=== PATIENT | male | born 1950 | race Caucasian/White ===

== ENCOUNTER 2017-02-22 06:38 | Day surgery (SDC) | payer MEDICARE, BC ==
--- NOTE | 2016-12-11 09:09 | HP ---
DATE: 12/14/16 ADMISSION DIAGNOSIS: 1. STRICTURE. ANTICIPATED PROCEDURE: 1. EGD, possible dilatation. HISTORY OF PRESENT ILLNESS: Patient had progressive dysphagia over 3 months. Risks of the procedure, a diagram of the procedure, anticipated either balloon or Ricardo dilatation. PAST MEDICAL HISTORY: ALLERGIES: NONE. CURRENT MEDICATIONS: Gabapentin, baclofen, Flomax. SURGERIES: Laminectomy. SOCIAL HISTORY: Negative. FAMILY HISTORY: Negative. REVIEW OF SYSTEMS: Positive. PHYSICAL EXAMINATION: Vital signs normal. CHEST: Clear. COR: Regular. ABDOMEN: No palpable organomegaly or mass. IMPRESSION: 1. DYSPHAGIA. PLAN: EGD, probable dilatation.
[2017-02-22] MEDS ORDERED: Lactated Ringers 1,000 ML IV SCH (08:00)
[2017-02-22] MEDS ORDERED: Versed 2 MG/2 ML Injection IV ONE (08:00)
[2017-02-22] MEDS ORDERED: DIPRIVAN 200 MG/20 ML IV ONE (08:00)
[2017-02-22 10:20] VITALS: O2SAT 98
[2017-02-22 10:44] VITALS: BP 129/73; PULSE 56
--- NOTE | 2017-02-23 08:20 | OP ---
SURGERY DATE: 02/22/17 SURGERY TIME: 844 PREOPERATIVE DIAGNOSIS: 1. SYMPTOMS OF DYSPHAGIA. POSTOPERATIVE DIAGNOSIS: 1. ESOPHAGEAL STRICTURE SIZE 40. PROCEDURE: 1. EGD with Ricardo dilatation of stricture up to size 48. SURGEON: Sergio Ko M.D. [employer] NURSE: Moi Curtis MS-III. ANESTHESIA: MAC. COMPLICATIONS: None. CONDITION: Stable. INDICATION: Patient has dysphagia. Was seen and examined in the office. Procedure discussed with him including dilatation. OPERATIVE PROCEDURE: He was brought to endoscopy. Left lateral decubitus position. After suitable sedation, scope introduced. The stricture was about the size of the scope when it first entered. The scope did go through. Fundus, body, and antrum otherwise satisfactory. Pylorus satisfactory. Duodenal bulb and 2nd portion satisfactory. Scope withdrawn, looped upon itself. The fundus could not be distended very well from below. Retroflex view was not very good. The scope was withdrawn back. There was nothing seen in the antrum, body, or fundus. At the esophagogastric junction, there was just stricture. It was straight on. The Ricardo's were chosen. A size 40 was placed. The scope was reintroduced. A size 42 was placed. The scope was reintroduced. Size 44, scope reintroduced. 46, scope reintroduced. 48, scope reintroduced. We had progressed this up to a 48. There was no suggestion of any issue at the stricture site. It dilated evenly. There were no cracks, tears, submucosal tunnels, etc. He is placed on Protonix. Instructions were given to his of elevation of the bed. No late eating and he is scheduled to return to the office. He does have a stricture which places him as a class III esophagitis. He would be a candidate for an antireflux procedure if he so desired. A stricture automatically qualifies you for a Kortney.
--- NOTE | 2017-02-23 09:00 | HP ---
DATE: 02/22/17 ADMISSION DIAGNOSIS: 1. DYSPHAGIA. ANTICIPATED PROCEDURE: 1. EGD/dilatation. HISTORY OF PRESENT ILLNESS: The patient has a dysphagia. It has been progressive. PAST MEDICAL HISTORY: ALLERGIES: NONE. CURRENT MEDICATIONS: Daypro, gabapentin, baclofen, Flomax. SURGERIES: Laminectomy. SOCIAL HISTORY: Negative. FAMILY HISTORY: Negative. REVIEW OF SYSTEMS: Borderline diabetes. PHYSICAL EXAMINATION: Vital signs normal. CHEST: Clear. COR: Regular. ABDOMEN: No palpable organomegaly or mass. IMPRESSION: 1. DYSPHAGIA. PLAN: EGD/dilatation.
== END 2017-02-22 10:50 | disposition home or self-care (01) ==
LOC: SDC 06:38
PROVIDERS: ATTEND Surgery
PROC: 0D798ZZ Dilation of Duodenum, Via Natural or Artificial Opening Endoscopic (ICD-10-PCS; principal; 2017-02-22)
PROC: 0D768ZZ Dilation of Stomach, Via Natural or Artificial Opening Endoscopic (ICD-10-PCS; 2017-02-22)
DX: K22.2 Esophageal obstruction (principal); R13.10 Dysphagia, unspecified; Z79.899 Other long term (current) drug therapy
CPT/HCPCS: 00740; J2250; J2704

== ENCOUNTER 2020-08-23 10:56 | Observation (INO) | payer MEDICARE, BC ==
[2020-08-23] MEDS ORDERED: Zofran 4 MG/2 ML VIAL IV ONE ×2 (11:25→12:53)
[2020-08-23] MEDS ORDERED: Sodium Chloride 0.9% 1000 ML 1,000 ML IV SCH (11:30)
[2020-08-23] MEDS ORDERED: Zofran 4 MG/2 ML VIAL ONE ×2 (11:35→12:54)
[2020-08-23] MEDS ORDERED: Sodium Chloride 0.9% 1000 ML 1,000 ML ONE (11:36)
--- NOTE | 2020-08-23 11:51 | ERPHSYRPT ---
- History of Present Illness Time Seen by Provider: 08/23/20 11:30 Source: patient Exam Limitations: no limitations Patient Subjective Stated Complaint: vomiting Triage Nursing Assessment: Patient brought back to ED via w/c and transferred to bed with assist of 2. Patient A+O X3. Patient's skin pale, cool and dry. Patient reports he has been vomiting since the day before thanksgiving. Patient states this past week he is very weak and hasn't been able to eat or drink in the past 3 days. Patient reports the week of thanksgiving he had diarrhea, loss of taste/smell and fatigue. Patient cont to complains of fatigue. Patient denies pain or discomfort, but states "His belly feels sour". Patient's abdomen soft and round with hypoactive BS X 4. Physician History: Patient is a 70-year-old male presents to our ED for evaluation of nausea vomiting anorexia generalized weakness. Symptoms have been ongoing for approxi mately 3 weeks. Patient states he has lost approximately 20 pounds in this time frame. Patient is also experiencing generalized abdominal soreness. Family observed the patient is pale. He admits to loss of taste and smell. However he denies Covid exposure. Symptoms are constant. Symptoms are mild to moderate in intensity. No specific worsening or improving factors. Patient voices no other complaints or concerns at this time. Timing/Duration: week(s) (3 weeks) Severity: moderate Modifying Factors: Improves With: nothing Associated Symptoms: nausea, vomiting Allergies/Adverse Reactions: No Known Drug Allergies Allergy (Verified 08/23/20 11:18) Home Medications: Gabapentin [Neurontin] 600 mg PO TID 08/27/14 [History] Baclofen 2 tab PO BID 12/31/15 [History] Bupivacaine HCl/0.9 % NaCl/Pf [Bupivacaine 0.125%-Ns Autofusr] 600 mcg EPIDURAL DAILY 12/13/17 [History] Paroxetine HCl 20 mg [Paxil 20 MG] 20 mg PO DAILY 12/13/17 [History] Polyethylene Glycol 3350 [Miralax] 17 gm PO DAILY 12/13/17 [History] Diclofenac Sodium 50 mg [Voltaren 50 mg] 100 mg PO BID 08/23/20 [History] Hx Influenza Vaccination/Date Given: No (fall 2013) Hx Pneumococcal Vaccination/Date Given: No Immunizations Up to Date: Yes Travel Risk - International Travel Have you traveled outside of the country in past 3 weeks: No - Coronavirus Screening Are you exhibiting any of the following symptoms?: Yes - Review of Systems Constitutional: No Symptoms, No Fever, No Chills Eyes: No Symptoms Ears, Nose, & Throat: No Symptoms Respiratory: No Symptoms, No Cough, No Dyspnea Cardiac: No Symptoms, No Chest Pain, No Edema, No Syncope Abdominal/Gastrointestinal: No Symptoms, No Abdominal Pain, No Nausea, No Vomiting, No Diarrhea Genitourinary Symptoms: No Symptoms, No Dysuria Musculoskeletal: No Symptoms, No Back Pain, No Neck Pain Skin: No Symptoms, No Rash Neurological: No Symptoms, No Dizziness, No Focal Weakness, No Sensory Changes Psychological: No Symptoms Endocrine: No Symptoms Hematologic/Lymphatic: No Symptoms Immunological/Allergic: No Symptoms All Other Systems: Reviewed and Negative - Past Medical History Pertinent Past Medical History: Yes Neurological History: Other ENT History: No Pertinent History Cardiac History: No Pertinent History Respiratory History: No Pertinent History Endocrine Medical History: No Pertinent History Musculoskeletal History: Rheumatoid Arthritis GI Medical History: Other History: No Pertinent History Psycho-Social History: Depression Male Reproductive Disorders: Prostate Problems Other Medical History: SEE ABOVE; PT. 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 Colonoscopy , left knee replacement, EGD with dilatation 2015 - Social History Smoking Status: Never smoker Exposure to second hand smoke: No Drug Use: none Patient Lives Alone: No - Nursing Vital Signs Nursing Vital Signs: Initial Vital Signs Temperature 98.5 F 08/23/20 11:23 Pulse Rate 85 08/23/20 11:23 Respiratory Rate 21 08/23/20 11:23 Blood Pressure 142/91 08/23/20 11:23 O2 Sat by Pulse Oximetry 99 08/23/20 11:23 Pain Scale Pain Intensity 0 - Physical Exam General Appearance: no apparent distress, alert, other (Patient appears pale and weak.) Eye Exam: PERRL/EOMI, eyes nml inspection Ears, Nose, Throat Exam: normal ENT inspection, TMs normal, pharynx normal, moist mucous membranes Neck Exam: normal inspection, non-tender, supple, full range of motion Respiratory Exam: normal breath sounds, lungs clear, No respiratory distress Cardiovascular Exam: regular rate/rhythm, normal heart sounds, normal peripheral pulses Gastrointestinal/Abdomen Exam: soft, normal bowel sounds, No tenderness, No mass Back Exam: normal inspection, normal range of motion, No CVA tenderness, No vertebral tenderness Extremity Exam: normal inspection, normal range of motion, pelvis stable Neurologic Exam: alert, oriented x 3, cooperative, normal mood/affect, sensation nml, No motor deficits Skin Exam: normal color, warm, dry, No rash Lymphatic Exam: No adenopathy SpO2 Interpretation: normal SpO2: 98 O2 Delivery: Room Air - Course Nursing assessment & vital signs reviewed: Yes EKG Interpreted by Me: RATE (90), A-fib, NORMAL AXIS, NORMAL INTERVALS Ordered Tests: Active Orders 24 hr Category Date Time Status Loss Claim Clerk STAT Care 08/23/20 11:25 Active EKG-ER Only STAT Care 08/23/20 11:24 Active Mccabe [Catheter-[place] Mccabe] STAT Care 08/23/20 12:53 Active IV Insertion STAT Care 08/23/20 11:24 Active Pulse Oximetry (ED) STAT Care 08/23/20 11:24 Active ABDOMEN AND PELVIS W CONTRAST [CT] Stat Exams 08/23/20 11:46 Completed CBC W DIFF Stat Lab 08/23/20 12:20 Completed CMP Stat Lab 08/23/20 12:20 Completed LIPASE Stat Lab 08/23/20 12:20 Completed MAGNESIUM Stat Lab 08/23/20 12:20 Completed TROPONIN Q3H Lab 08/23/20 12:20 Completed TROPONIN Q3H Lab 08/23/20 14:30 Completed TROPONIN Q3H Lab 08/23/20 17:30 Ordered TROPONIN Q3H Lab 08/23/20 20:30 Ordered TROPONIN Q3H Lab 08/23/20 23:30 Ordered Transfer Order Routine Transfer 08/23/20 Ordered Medication Summary Generic Name Dose Route Start Last Admin Trade Name Freq PRN Reason Stop Dose Admin Sodium Chloride 1,000 mls @ 100 mls/hr 08/23/20 11:30 08/23/20 11:38 Sodium Chloride 0.9% 1000 Ml IV 09/22/20 11:29 100 mls/hr .Q10H LELO Administration Discontinued Medications Generic Name Dose Route Start Last Admin Trade Name Freq PRN Reason Stop Dose Admin Enoxaparin Sodium 80 mg 08/23/20 16:26 Enoxaparin Sodium SQ 08/23/20 16:27 STAT ONE Ondansetron HCl 4 mg 08/23/20 11:25 08/23/20 11:38 Zofran 4 Mg/2 Ml Vial IV 08/23/20 11:26 4 mg STAT ONE Administration Ondansetron HCl Confirm 08/23/20 11:35 Zofran 4 Mg/2 Ml Vial Administered 08/23/20 11:36 Dose 4 mg .ROUTE .STK-MED ONE Ondansetron HCl 4 mg 08/23/20 12:53 08/23/20 12:57 Zofran 4 Mg/2 Ml Vial IV 08/23/20 12:54 4 mg STAT ONE Administration Ondansetron HCl Confirm 08/23/20 12:54 Zofran 4 Mg/2 Ml Vial Administered 08/23/20 12:55 Dose 4 mg .ROUTE .STK-MED ONE Pantoprazole Sodium 40 mg 08/23/20 16:22 Protonix 40 Mg Iv IV 08/23/20 16:23 STAT ONE Lab/Rad Data: Laboratory Result Diagrams 08/23/20 12:20 08/23/20 12:20 Laboratory Results 08/23/20 08/23/20 08/23/20 Range/Units 14:30 13:09 12:43 WBC (4.0-10.5) K/mm3 RBC (4.1-5.6) M/mm3 Hgb (12.5-18.0) gm/dl Hct (42-50) % MCV (78-100) fl MCH (26-32) pg MCHC (32-36) g/dl RDW (11.5-14.0) % Plt Count (150-450) K/mm3 MPV (7.5-11.0) fl Gran % (36.0-66.0) % Eos # (Auto) (0-0.5) Absolute Lymphs (auto) (1.0-4.6) Absolute Monos (auto) (0.0-1.3) Lymphocytes % (24.0-44.0) % Monocytes % (0.0-12.0) % Eosinophils % (0.00-5.0) % Basophils % (0.0-0.4) % Absolute Granulocytes (1.4-6.9) Basophils # (0-0.4) Sodium (137-145) mmol/L Potassium (3.5-5.1) mmol/L Chloride (98-107) mmol/L Carbon Dioxide (22-30) mmol/L Anion Gap (5-15) MEQ/L BUN (9-20) mg/dL Creatinine (0.66-1.25) mg/dL Estimated GFR ML/MIN Glucose (74-106) mg/dL Calcium (8.4-10.2) mg/dL Magnesium (1.6-2.3) mg/dL Total Bilirubin (0.2-1.3) mg/dL AST (17-59) U/L ALT (0-50) U/L Alkaline Phosphatase (38-126) U/L Troponin I < 0.012 (0.000-0.034) ng/mL Serum Total Protein (6.3-8.2) g/dL Albumin (3.5-5.0) g/dL Lipase (23-300) U/L Urinalys Dipstick Clnc MAIN LAB Urine Color YELLOW (YELLOW) Urine Appearance CLEAR (CLEAR) Urine pH 6.0 (5-6) Ur Specific [place] 1.025 (1.005-1.025) POC Urine Protein Conf TRACE (Negative) Urine Ketones MODERATE-40 (NEGATIVE) Urine Nitrite NEGATIVE (NEGATIVE) Urine Bilirubin SMALL (NEGATIVE) Urine Urobilinogen 0.2 (0-1) mg/dL Urine Leukocytes NEGATIVE (NEGATIVE) Urine WBC (Auto) 0-2 (0-5) /HPF Urine RBC (Auto) 3-5 (0-2) /HPF Urine RBC TRACE-INTACT (0-5) Gurjit/ul Urine Mucus (Auto) SLIGHT (NEGATIVE) /HPF Ur Culture Indicated? NO Urine Glucose NEGATIVE (NEGATIVE) mg/dL SARS-CoV-2 (PCR) NEGATIVE (NEGATIVE) 08/23/20 08/23/20 08/23/20 Range/Units 12:20 12:20 12:20 WBC 9.5 (4.0-10.5) K/mm3 RBC 3.70 L (4.1-5.6) M/mm3 Hgb 11.6 L (12.5-18.0) gm/dl Hct 36.5 L (42-50) % MCV 98.6 (78-100) fl MCH 31.4 (26-32) pg MCHC 31.8 L (32-36) g/dl RDW 13.2 (11.5-14.0) % Plt Count 195 (150-450) K/mm3 MPV 10.7 (7.5-11.0) fl Gran % 85.5 H (36.0-66.0) % Eos # (Auto) 0.06 (0-0.5) Absolute Lymphs (auto) 0.81 L (1.0-4.6) Absolute Monos (auto) 0.49 (0.0-1.3) Lymphocytes % 8.6 L (24.0-44.0) % Monocytes % 5.2 (0.0-12.0) % Eosinophils % 0.6 (0.00-5.0) % Basophils % 0.1 (0.0-0.4) % Absolute Granulocytes 8.08 H (1.4-6.9) Basophils # 0.01 (0-0.4) Sodium 135 L (137-145) mmol/L Potassium 4.1 (3.5-5.1) mmol/L Chloride 99 (98-107) mmol/L Carbon Dioxide 25 (22-30) mmol/L Anion Gap 14.5 (5-15) MEQ/L BUN 27 H (9-20) mg/dL Creatinine 0.93 (0.66-1.25) mg/dL Estimated GFR > 60.0 ML/MIN Glucose 127 H (74-106) mg/dL Calcium 9.3 (8.4-10.2) mg/dL Magnesium 2.0 (1.6-2.3) mg/dL Total Bilirubin 0.80 (0.2-1.3) mg/dL AST 44 (17-59) U/L ALT 34 (0-50) U/L Alkaline Phosphatase 191 H (38-126) U/L Troponin I < 0.012 (0.000-0.034) ng/mL Serum Total Protein 7.9 (6.3-8.2) g/dL Albumin 4.3 (3.5-5.0) g/dL Lipase 32 (23-300) U/L Urinalys Dipstick Clnc Urine Color (YELLOW) Urine Appearance (CLEAR) Urine pH (5-6) Ur Specific [place] (1.005-1.025) POC Urine Protein Conf (Negative) Urine Ketones (NEGATIVE) Urine Nitrite (NEGATIVE) Urine Bilirubin (NEGATIVE) Urine Urobilinogen (0-1) mg/dL Urine Leukocytes (NEGATIVE) Urine WBC (Auto) (0-5) /HPF Urine RBC (Auto) (0-2) /HPF Urine RBC (0-5) Gurjit/ul Urine Mucus (Auto) (NEGATIVE) /HPF Ur Culture Indicated? Urine Glucose (NEGATIVE) mg/dL SARS-CoV-2 (PCR) (NEGATIVE) - Progress Progress: improved Progress Note: 08/23/20 16:[address] Shaikh. Patient is new onset atrial fibrillation. Anticoagulation ordered. Patient received a dose of Lovenox. Protonix administered. Zofran administered. Patient feels better. Due to patient's atrial fibrillation Dr. Shaikh requested cardiology consult. Cardiology not immediately available. Dr. Shaikh not comfortable with admission. Staff contacted Dr. Vargas who accepted admission. Patient received a dose of Lovenox in our ED. Discussed with : Tawanda Will see patient in: hospital (observation) Counseled pt/family regarding: lab results, diagnosis, need for follow-up, rad results - Departure Departure Disposition: Observation Clinical Impression: Lung granuloma, Renal cyst, Atherosclerosis, Diverticulosis, Inguinal hernia, right, Degenerative disc disease, Generalized weakness, Weight loss, Nausea and vomiting, Atrial fibrillation Condition: Stable Critical Care Time: No Referrals: DOMI CORNEJO [Primary Care Provider] -
[2020-08-23 12:40] LABS: Absolute Neutrophil Ct (ANC) 8.08 (1.4-6.9); BASOPHIL % 0.1 % (0.0-0.4); Basophil (Absolute #) 0.01 (0-0.4); Eosinophil % 0.6 % (0.00-5.0); Eosinophil (Absolute #) 0.06 (0-0.5); Hematocrit 36.5 % (42-50); Hemoglobin 11.6 gm/dl (12.5-18.0); Lymphocyte (Absolute #) 0.81 (1.0-4.6); Lymphocytes % 8.6 % (24.0-44.0); Mean Cell Volume 98.6 fl (78-100); Mean Corpuscular Hemoglobin 31.4 pg (26-32); Mean Corpuscular Hgb Concent. 31.8 g/dl (32-36); Mean Platelet Volume 10.7 fl (7.5-11.0); Monocyte (Absolute #) 0.49 (0.0-1.3); Monocytes % 5.2 % (0.0-12.0); Neutrophil % 85.5 % (36.0-66.0); Platelet Count 195 K/mm3 (150-450); Red Cell Distribution Width 13.2 % (11.5-14.0); White Blood Count 9.5 K/mm3 (4.0-10.5)
[2020-08-23 12:43] LABS: ALBUMIN 4.3 g/dL (3.5-5.0); ALKALINE PHOSPHATASE 191 U/L (38-126); ANION GAP 14.5 MEQ/L (5-15); BLOOD UREA NITROGEN 27 mg/dL (9-20); CHLORIDE 99 mmol/L (98-107); Calcium 9.3 mg/dL (8.4-10.2); Carbon Dioxide 25 mmol/L (22-30); Creatinine 1 0.93 mg/dL (0.66-1.25); EST GLOMERULAR FILTRATION RATE > 60.0 ML/MIN; Glucose 127 mg/dL (74-106); LIPASE 32 U/L (23-300); Potassium 4.1 mmol/L (3.5-5.1); SGOT/AST 44 U/L (17-59); SGPT/ALT 34 U/L (0-50); SODIUM 135 mmol/L (137-145); Total Protein 7.9 g/dL (6.3-8.2)
[2020-08-23 13:31] LABS: Appearance CLEAR (CLEAR); Bilirubin SMALL (NEGATIVE); Dipstick done @ ? MAIN LAB; Glucose NEGATIVE (NEGATIVE); Ketones MODERATE-40 (NEGATIVE); Nitrite NEGATIVE (NEGATIVE); Protein,Urine Dip TRACE (Negative); RBC TRACE-INTACT Ery/ul (0-5); Specific Gravity 1.025 (1.005-1.025); Urobilinogen 0.2 mg/dL (0-1)
[2020-08-23 13:33] LABS: Mucus SLIGHT /HPF (NEGATIVE); WBC 0-2 /HPF (0-5)
--- NOTE | 2020-08-23 14:27 | XRAY ---
Exam: CT of the abdomen and pelvis with IV contrast from 08/23/2020. Total DLP: 2099.10 mGy-cm Comparison: None. Indication: 70-year-old male with persistent nausea, fatigue, and weight loss. The patient is status post appendectomy. He had a pain pump placed on his left side in 2015. Technique: Post-IV contrast axial images were obtained through the abdomen and pelvis during automated injection of 80 cc of Isovue-370 contrast material. No oral contrast was given. Reconstructed coronal and sagittal images were created and reviewed. Findings: The patient was unable to position his arms over his head for this exam. This results in mild increased CT artifact. The visualized lung bases reveal a small calcified granuloma at the medial right lung base. There is also a small calcified granuloma at the posterior medial left lung base. The remainder of the visualized lung bases appears clear. The liver appears of unremarkable size and reveals no mass or biliary duct distention. The gallbladder is minimally distended, but grossly unremarkable. The spleen is of normal size and reveals multiple calcified granulomas within it. The pancreas and adrenal glands appear normal. The kidneys reveal a 1.8 cm x 1.5 cm cyst at the posterior medial aspect of the middle third of the left kidney. No definite solid renal mass, renal calculi, or hydronephrosis is seen. A mildly tortuous abdominal aorta is seen which contains moderate atherosclerotic vascular calcification. No abdominal aortic aneurysm is seen. No abnormal retroperitoneal lymphadenopathy is seen. I do see a nonspecific 1.1 cm left periaortic lymph node on axial image #35 of series 2. This is nonspecific. No abnormal mesenteric lymphadenopathy is seen. A metallic generator for a pain pump is seen within the anterior lateral left midabdomen in a subcutaneous position. I do not see any leads emanating from this pain pump. Correlate clinically. No ventral abdominal wall hernia or free intraperitoneal air is seen. The stomach appears mildly distended and reveals moderate fluid within it resulting in a long air-fluid level, best seen on axial image #33. The remainder of the small bowel and colon appear nonobstructed. Scattered colonic stool is evident. Uncomplicated diverticula are seen within the distal descending colon and sigmoid colon consistent with diverticulosis without evidence of diverticulitis. The appendix is surgically absent. No enlarged pelvic lymph nodes or free intraperitoneal fluid is seen. A urinary Mccabe catheter is seen in place with the urinary bladder completely collapsed. Minimal prostate gland calcification is noted within a normal-sized prostate gland. A prominent fat-containing right inguinal hernia is seen. No bowel containing inguinal hernia is seen. Some vascular calcification is seen within the right common femoral artery. A few shoddy postinflammatory lymph nodes are seen within each groin. The skeleton reveals no acute fracture or bone destruction. Moderate multilevel degenerative disc disease is seen within the visualized lower thoracic spine, most pronounced at T9-T10. I also note mild degenerative disc disease at L1-L2 and L2-L3 and moderate to marked degenerative disc disease at L3-L4, L4-L5, and L5-S1. Impression: 1. Nonspecific bowel gas pattern with mildly distended stomach lumen containing moderate intraluminal fluid. I see no findings to suggest bowel obstruction. No free air or free fluid is seen. 2. Small cyst at the medial margin of the left kidney, mild atherosclerotic vascular disease, diverticulosis without evidence of diverticulitis within the distal descending and sigmoid colon, and a prominent right inguinal fat-containing hernia are seen. 3. No other acute process is seen within the abdomen or pelvis. 4. A metallic generator for a pain pump is seen overlying the subcutaneous anterior left lateral midabdomen. No electrodes are seen emanating from it. I also note a urinary Mccabe catheter in place. 5. Significant multilevel degenerative disc disease is seen throughout the visualized thoracolumbar spine, as discussed above.
[2020-08-23] MEDS ORDERED: PROTONIX 40 MG IV IV ONE ×2 (16:22→16:28)
[2020-08-23] MEDS ORDERED: ENOXAPARIN SODIUM SQ ONE ×2 (16:26→16:28)
[2020-08-23] MEDS ORDERED: MORPHINE SULFATE 2 MG INJ IV PRN (16:52)
[2020-08-23] MEDS ORDERED: Zofran 4 MG/2 ML VIAL IV PRN (17:39)
[2020-08-23] MEDS: Sodium Chloride 0.9% 1000 ML 1,000 ML IV SCH ×2 (18:13→20:53)
[2020-08-23] MEDS: NEURONTIN 300 MG PO SCH (22:18)
[2020-08-23] MEDS: Miralax Powder 17GM PACKET PO SCH (22:19)
[2020-08-23] MEDS: LIORESAL 10 MG PO SCH (22:19)
[2020-08-23] MEDS: Voltaren GEL TOP SCH (22:26)
[2020-08-24] MEDS ORDERED: ENOXAPARIN SODIUM SQ SCH (04:00)
[2020-08-24 06:06] LABS: Absolute Neutrophil Ct (ANC) 3.34 (1.4-6.9); BASOPHIL % 0.2 % (0.0-0.4); Basophil (Absolute #) 0.01 (0-0.4); Eosinophil % 5.9 % (0.00-5.0); Eosinophil (Absolute #) 0.35 (0-0.5); Hematocrit 28.7 % (42-50); Hemoglobin 9.1 gm/dl (12.5-18.0); Lymphocyte (Absolute #) 1.75 (1.0-4.6); Lymphocytes % 29.4 % (24.0-44.0); Mean Cell Volume 98.6 fl (78-100); Mean Corpuscular Hemoglobin 31.3 pg (26-32); Mean Corpuscular Hgb Concent. 31.7 g/dl (32-36); Monocytes % 8.4 % (0.0-12.0); Neutrophil % 56.1 % (36.0-66.0); Platelet Count 162 K/mm3 (150-450); Red Blood Count 2.91 M/mm3 (4.1-5.6); Red Cell Distribution Width 13.3 % (11.5-14.0)
[2020-08-24 06:13] LABS: ALBUMIN 3.1 g/dL (3.5-5.0); ALKALINE PHOSPHATASE 143 U/L (38-126); ANION GAP 8.2 MEQ/L (5-15); BLOOD UREA NITROGEN 26 mg/dL (9-20); CHLORIDE 103 mmol/L (98-107); Carbon Dioxide 23 mmol/L (22-30); Creatinine 1 1.05 mg/dL (0.66-1.25); EST GLOMERULAR FILTRATION RATE > 60.0 ML/MIN; Glucose 89 mg/dL (74-106); Potassium 3.9 mmol/L (3.5-5.1); SGOT/AST 34 U/L (17-59); SGPT/ALT 29 U/L (0-50); SODIUM 130 mmol/L (137-145)
[2020-08-24] MEDS: Sodium Chloride 0.9% 1000 ML 1,000 ML IV SCH ×2 (06:27→17:18)
--- NOTE | 2020-08-24 08:42 | PCM.HP ---
History of Present Illness - Chief Complaint Chief Complaint: Nausea and vomiting History of Present Illness: is a 70 year old male patient of Dr Correa, he was admitted yesterday, came to the ER stating that he has felt poorly for the last 2 weeks, he has been very nauseated with intermittent vomiting and poor appetite. he has had some intermittent diarrhea as well, denies pain in his abdomen, no prior history of GI bleed, has had a colonoscopy but it was several years back per the patient. 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 he is actually feeling much better this morning, nausea has responded very well to zofran, he denies chest pain, no shortness of breath or palpitations. He had a negative rapid covid in ER on 08/23. 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 - Review of Systems Constitutional: No Fever, No Chills Abdominal/Gastrointestinal: Nausea, Vomiting, Diarrhea, No Abdominal Pain Skin: No Rash All Other Systems: Reviewed and Negative Medications & Allergies Home Medications: Home Medication List Gabapentin [Neurontin] 600 mg PO TID 08/27/14 [History Confirmed 08/23/20] Baclofen 20 mg PO TID 12/31/15 [History Confirmed 08/23/20] Bupivacaine HCl/0.9 % NaCl/Pf [Bupivacaine 0.125%-Ns Autofusr] 600 mcg EPIDURAL DAILY 12/13/17 [History Confirmed 08/23/20] Paroxetine HCl 20 mg [Paxil 20 MG] 20 mg PO DAILY 12/13/17 [History Confirmed 08/23/20] Polyethylene Glycol 3350 [Miralax] 17 gm PO DAILY 12/13/17 [History Confirmed 08/23/20] Diclofenac Sodium 50 mg [Voltaren 50 mg] 100 mg PO BID 08/23/20 [History Confirmed 08/23/20] Allergies/Adverse Reactions: Allergies Allergy/AdvReac Type Severity Reaction Status Date / Time No Known Drug Allergies Allergy Verified 08/23/20 11:18 - Past Medical History Past Medical History: Yes Neurological History: Other ENT History: No Pertinent History Cardiac History: No Pertinent History Respiratory History: No Pertinent History Endocrine Medical History: No Pertinent History Musculoskelatal History: Rheumatoid Arthritis GI Medical History: Other History: No Pertinent History Pyscho-Social History: Depression Male Reproductive Disorders: Prostate Problems Comment: SEE ABOVE; pt has arthritis in right knee and bilateral shoulders, pt has difficulty swallowing.constipation related to nerve damage, spinal stenosis - Past Surgical History Past Surgical History: Yes Neuro Surgical History: No Pertinent History Cardiac History: No Pertinent History Respiratory Surgery: No Pertinent History GI Surgical History: Appendectomy Genitourinary Surgical Hx: No Pertinent History Musculskeletal Surgical Hx: Other Male Surgical History: No Pertinent History Other Surgical History: tonsils,states back t-10,11,12 r/t thoracic stenosis(states bone removed). Colonoscopy , left knee replacement, EGD with dilatation 2015 - Social History Smoking Status: Never smoker Exposure to second hand smoke: No Alcohol: None Drug Use: none - Physical Exam Vital Signs: Vital Signs - 24 hr Temp Pulse Resp BP Pulse Ox 08/24/20 07:37 97.9 F 73 20 97/55 96 08/24/20 04:00 97.1 F 65 20 110/58 96 08/24/20 00:00 97.9 F 69 20 104/58 95 08/23/20 20:00 97.6 F 69 20 105/57 96 08/23/20 17:42 98 08/23/20 16:30 98 08/23/20 15:00 76 16 129/65 99 08/23/20 14:00 76 18 127/72 99 08/23/20 12:50 88 18 139/83 98 08/23/20 11:35 98 08/23/20 11:34 98 08/23/20 11:23 98.5 F 85 21 142/91 99 General Appearance: no apparent distress Neurologic Exam: alert, oriented x 3 Respiratory Exam: normal breath sounds, lungs clear, No respiratory distress Cardiovascular Exam: irregular Gastrointestinal/Abdomen Exam: soft, normal bowel sounds, No tenderness, No mass Extremity Exam: normal inspection, normal range of motion, pelvis stable Skin Exam: normal color, warm, dry, No rash Results - Labs Lab/Micro Results: Lab Results-Last 24 Hours 08/23/20 08/23/20 08/23/20 Range/Units 12:20 12:20 12:20 WBC 9.5 (4.0-10.5) K/mm3 RBC 3.70 L (4.1-5.6) M/mm3 Hgb 11.6 L (12.5-18.0) gm/dl Hct 36.5 L (42-50) % MCV 98.6 (78-100) fl MCH 31.4 (26-32) pg MCHC 31.8 L (32-36) g/dl RDW 13.2 (11.5-14.0) % Plt Count 195 (150-450) K/mm3 MPV 10.7 (7.5-11.0) fl Gran % 85.5 H (36.0-66.0) % Eos # (Auto) 0.06 (0-0.5) Absolute Lymphs (auto) 0.81 L (1.0-4.6) Absolute Monos (auto) 0.49 (0.0-1.3) Lymphocytes % 8.6 L (24.0-44.0) % Monocytes % 5.2 (0.0-12.0) % Eosinophils % 0.6 (0.00-5.0) % Basophils % 0.1 (0.0-0.4) % Absolute Granulocytes 8.08 H (1.4-6.9) Basophils # 0.01 (0-0.4) Sodium 135 L (137-145) mmol/L Potassium 4.1 (3.5-5.1) mmol/L Chloride 99 (98-107) mmol/L Carbon Dioxide 25 (22-30) mmol/L Anion Gap 14.5 (5-15) MEQ/L BUN 27 H (9-20) mg/dL Creatinine 0.93 (0.66-1.25) mg/dL Estimated GFR > 60.0 ML/MIN Glucose 127 H (74-106) mg/dL Calcium 9.3 (8.4-10.2) mg/dL Magnesium 2.0 (1.6-2.3) mg/dL Total Bilirubin 0.80 (0.2-1.3) mg/dL AST 44 (17-59) U/L ALT 34 (0-50) U/L Alkaline Phosphatase 191 H (38-126) U/L Troponin I < 0.012 (0.000-0.034) ng/mL Serum Total Protein 7.9 (6.3-8.2) g/dL Albumin 4.3 (3.5-5.0) g/dL Lipase 32 (23-300) U/L Urinalys Dipstick Clnc Urine Color (YELLOW) Urine Appearance (CLEAR) Urine pH (5-6) Ur Specific [place] (1.005-1.025) POC Urine Protein Conf (Negative) Urine Ketones (NEGATIVE) Urine Nitrite (NEGATIVE) Urine Bilirubin (NEGATIVE) Urine Urobilinogen (0-1) mg/dL Urine Leukocytes (NEGATIVE) Urine WBC (Auto) (0-5) /HPF Urine RBC (Auto) (0-2) /HPF Urine RBC (0-5) Gurjit/ul Urine Mucus (Auto) (NEGATIVE) /HPF Ur Culture Indicated? Urine Glucose (NEGATIVE) mg/dL SARS-CoV-2 (PCR) (NEGATIVE) 08/23/20 08/23/20 08/23/20 Range/Units 12:43 13:09 14:30 WBC (4.0-10.5) K/mm3 RBC (4.1-5.6) M/mm3 Hgb (12.5-18.0) gm/dl Hct (42-50) % MCV (78-100) fl MCH (26-32) pg MCHC (32-36) g/dl RDW (11.5-14.0) % Plt Count (150-450) K/mm3 MPV (7.5-11.0) fl Gran % (36.0-66.0) % Eos # (Auto) (0-0.5) Absolute Lymphs (auto) (1.0-4.6) Absolute Monos (auto) (0.0-1.3) Lymphocytes % (24.0-44.0) % Monocytes % (0.0-12.0) % Eosinophils % (0.00-5.0) % Basophils % (0.0-0.4) % Absolute Granulocytes (1.4-6.9) Basophils # (0-0.4) Sodium (137-145) mmol/L Potassium (3.5-5.1) mmol/L Chloride (98-107) mmol/L Carbon Dioxide (22-30) mmol/L Anion Gap (5-15) MEQ/L BUN (9-20) mg/dL Creatinine (0.66-1.25) mg/dL Estimated GFR ML/MIN Glucose (74-106) mg/dL Calcium (8.4-10.2) mg/dL Magnesium (1.6-2.3) mg/dL Total Bilirubin (0.2-1.3) mg/dL AST (17-59) U/L ALT (0-50) U/L Alkaline Phosphatase (38-126) U/L Troponin I < 0.012 (0.000-0.034) ng/mL Serum Total Protein (6.3-8.2) g/dL Albumin (3.5-5.0) g/dL Lipase (23-300) U/L Urinalys Dipstick Clnc MAIN LAB Urine Color YELLOW (YELLOW) Urine Appearance CLEAR (CLEAR) Urine pH 6.0 (5-6) Ur Specific [place] 1.025 (1.005-1.025) POC Urine Protein Conf TRACE (Negative) Urine Ketones MODERATE-40 (NEGATIVE) Urine Nitrite NEGATIVE (NEGATIVE) Urine Bilirubin SMALL (NEGATIVE) Urine Urobilinogen 0.2 (0-1) mg/dL Urine Leukocytes NEGATIVE (NEGATIVE) Urine WBC (Auto) 0-2 (0-5) /HPF Urine RBC (Auto) 3-5 (0-2) /HPF Urine RBC TRACE-INTACT (0-5) Gurjit/ul Urine Mucus (Auto) SLIGHT (NEGATIVE) /HPF Ur Culture Indicated? NO Urine Glucose NEGATIVE (NEGATIVE) mg/dL SARS-CoV-2 (PCR) NEGATIVE (NEGATIVE) 08/23/20 08/23/20 08/23/20 Range/Units 18:15 20:46 23:46 WBC (4.0-10.5) K/mm3 RBC (4.1-5.6) M/mm3 Hgb (12.5-18.0) gm/dl Hct (42-50) % MCV (78-100) fl MCH (26-32) pg MCHC (32-36) g/dl RDW (11.5-14.0) % Plt Count (150-450) K/mm3 MPV (7.5-11.0) fl Gran % (36.0-66.0) % Eos # (Auto) (0-0.5) Absolute Lymphs (auto) (1.0-4.6) Absolute Monos (auto) (0.0-1.3) Lymphocytes % (24.0-44.0) % Monocytes % (0.0-12.0) % Eosinophils % (0.00-5.0) % Basophils % (0.0-0.4) % Absolute Granulocytes (1.4-6.9) Basophils # (0-0.4) Sodium (137-145) mmol/L Potassium (3.5-5.1) mmol/L Chloride (98-107) mmol/L Carbon Dioxide (22-30) mmol/L Anion Gap (5-15) MEQ/L BUN (9-20) mg/dL Creatinine (0.66-1.25) mg/dL Estimated GFR ML/MIN Glucose (74-106) mg/dL Calcium (8.4-10.2) mg/dL Magnesium (1.6-2.3) mg/dL Total Bilirubin (0.2-1.3) mg/dL AST (17-59) U/L ALT (0-50) U/L Alkaline Phosphatase (38-126) U/L Troponin I < 0.012 < 0.012 < 0.012 (0.000-0.034) ng/mL Serum Total Protein (6.3-8.2) g/dL Albumin (3.5-5.0) g/dL Lipase (23-300) U/L Urinalys Dipstick Clnc Urine Color (YELLOW) Urine Appearance (CLEAR) Urine pH (5-6) Ur Specific [place] (1.005-1.025) POC Urine Protein Conf (Negative) Urine Ketones (NEGATIVE) Urine Nitrite (NEGATIVE) Urine Bilirubin (NEGATIVE) Urine Urobilinogen (0-1) mg/dL Urine Leukocytes (NEGATIVE) Urine WBC (Auto) (0-5) /HPF Urine RBC (Auto) (0-2) /HPF Urine RBC (0-5) Gurjit/ul Urine Mucus (Auto) (NEGATIVE) /HPF Ur Culture Indicated? Urine Glucose (NEGATIVE) mg/dL SARS-CoV-2 (PCR) (NEGATIVE) 08/24/20 08/24/20 Range/Units 04:40 04:40 WBC 6.0 (4.0-10.5) K/mm3 RBC 2.91 L (4.1-5.6) M/mm3 Hgb 9.1 L D (12.5-18.0) gm/dl Hct 28.7 L (42-50) % MCV 98.6 (78-100) fl MCH 31.3 (26-32) pg MCHC 31.7 L (32-36) g/dl RDW 13.3 (11.5-14.0) % Plt Count 162 (150-450) K/mm3 MPV 11.0 (7.5-11.0) fl Gran % 56.1 (36.0-66.0) % Eos # (Auto) 0.35 (0-0.5) Absolute Lymphs (auto) 1.75 (1.0-4.6) Absolute Monos (auto) 0.50 (0.0-1.3) Lymphocytes % 29.4 (24.0-44.0) % Monocytes % 8.4 (0.0-12.0) % Eosinophils % 5.9 H (0.00-5.0) % Basophils % 0.2 (0.0-0.4) % Absolute Granulocytes 3.34 (1.4-6.9) Basophils # 0.01 (0-0.4) Sodium 130 L (137-145) mmol/L Potassium 3.9 (3.5-5.1) mmol/L Chloride 103 (98-107) mmol/L Carbon Dioxide 23 (22-30) mmol/L Anion Gap 8.2 (5-15) MEQ/L BUN 26 H (9-20) mg/dL Creatinine 1.05 (0.66-1.25) mg/dL Estimated GFR > 60.0 ML/MIN Glucose 89 (74-106) mg/dL Calcium 8.0 L (8.4-10.2) mg/dL Magnesium (1.6-2.3) mg/dL Total Bilirubin 0.50 (0.2-1.3) mg/dL AST 34 (17-59) U/L ALT 29 (0-50) U/L Alkaline Phosphatase 143 H (38-126) U/L Troponin I (0.000-0.034) ng/mL Serum Total Protein 6.0 L (6.3-8.2) g/dL Albumin 3.1 L (3.5-5.0) g/dL Lipase (23-300) U/L Urinalys Dipstick Clnc Urine Color (YELLOW) Urine Appearance (CLEAR) Urine pH (5-6) Ur Specific [place] (1.005-1.025) POC Urine Protein Conf (Negative) Urine Ketones (NEGATIVE) Urine Nitrite (NEGATIVE) Urine Bilirubin (NEGATIVE) Urine Urobilinogen (0-1) mg/dL Urine Leukocytes (NEGATIVE) Urine WBC (Auto) (0-5) /HPF Urine RBC (Auto) (0-2) /HPF Urine RBC (0-5) Gurjit/ul Urine Mucus (Auto) (NEGATIVE) /HPF Ur Culture Indicated? Urine Glucose (NEGATIVE) mg/dL SARS-CoV-2 (PCR) (NEGATIVE) - Radiology Impressions Radiology Exams & Impressions: Radiology Procedures Category Date Time Status ABDOMEN AND PELVIS W CONTRAST [CT] Stat Exams 08/23/20 11:46 Completed ECHO W/2D AND DOPPLER [US] Routine Exams 08/24/20 Ordered Assessment/Plan (1) New onset atrial fibrillation Current Visit: Yes Status: Acute Assessment & Plan: ordered tsh, troponin negative. will hold on any more lovenox at this time secondary to anemia. cardiology consult and echo are pending. rate has been controlled so no intervention required currently. Code(s): I48.91 - UNSPECIFIED ATRIAL FIBRILLATION (2) Anemia Current Visit: Yes Status: Acute Assessment & Plan: concern for ulcer disease, with new onset of a fib will hold on any more anticoagulation, continue IV PPI, will obtain surgical consult. if h/h drops further might need to consider endoscopic evaluation, will appreciate their input and following. checking stool for occult blood, had mild anemia on arrival, worsened overnight. hydration might have some dilutional component but I do not feel it would account for the entire drop. Code(s): D64.9 - ANEMIA, UNSPECIFIED (3) Nausea and vomiting Current Visit: Yes Status: Acute Assessment & Plan: improved with zofran at this time. Code(s): R11.2 - NAUSEA WITH VOMITING, UNSPECIFIED
[2020-08-24] MEDS: Paxil 20 MG PO SCH (09:11)
[2020-08-24] MEDS: NEURONTIN 300 MG PO SCH ×3 (09:11→21:59)
[2020-08-24] MEDS: LIORESAL 10 MG PO SCH ×3 (09:11→21:59)
[2020-08-24] MEDS: Miralax Powder 17GM PACKET PO SCH (09:12)
[2020-08-24] MEDS: Voltaren GEL TOP SCH ×3 (09:13→21:59)
[2020-08-24] MEDS: PROTONIX 40 MG IV IV SCH ×2 (09:25→21:59)
[2020-08-24] MEDS ORDERED: PROTONIX 40 MG IV IV SCH (10:00)
[2020-08-24] MEDS: SODIUM CHLORIDE IJ SCH (10:03)
[2020-08-24] MEDS: [UNRECOGNIZED DRUG - OTHER] IJ SCH (10:03)
[2020-08-24] MEDS: BUPIVACAINE HCL IJ SCH (10:03)
[2020-08-24 16:03] LABS: Hematocrit 30.3 % (42-50); Hemoglobin 9.6 gm/dl (12.5-18.0)
[2020-08-25 04:39] LABS: Absolute Neutrophil Ct (ANC) 3.01 (1.4-6.9); BASOPHIL % 0.2 % (0.0-0.4); Basophil (Absolute #) 0.01 (0-0.4); Eosinophil % 6.9 % (0.00-5.0); Eosinophil (Absolute #) 0.32 (0-0.5); Hematocrit 27.7 % (42-50); Hemoglobin 8.8 gm/dl (12.5-18.0); Lymphocytes % 21.5 % (24.0-44.0); Mean Cell Volume 98.9 fl (78-100); Mean Corpuscular Hemoglobin 31.4 pg (26-32); Mean Corpuscular Hgb Concent. 31.8 g/dl (32-36); Mean Platelet Volume 10.4 fl (7.5-11.0); Monocyte (Absolute #) 0.32 (0.0-1.3); Monocytes % 6.9 % (0.0-12.0); Neutrophil % 64.5 % (36.0-66.0); Platelet Count 165 K/mm3 (150-450); Red Cell Distribution Width 13.2 % (11.5-14.0); White Blood Count 4.7 K/mm3 (4.0-10.5)
[2020-08-25 05:08] LABS: ANION GAP 9.4 MEQ/L (5-15); BLOOD UREA NITROGEN 16 mg/dL (9-20); CHLORIDE 102 mmol/L (98-107); Calcium 8.2 mg/dL (8.4-10.2); Carbon Dioxide 27 mmol/L (22-30); Creatinine 1 0.78 mg/dL (0.66-1.25); EST GLOMERULAR FILTRATION RATE > 60.0 ML/MIN; Glucose 92 mg/dL (74-106); Potassium 3.8 mmol/L (3.5-5.1); SODIUM 134 mmol/L (137-145); TROPONIN < 0.012 ng/mL (0.000-0.034)
--- NOTE | 2020-08-25 08:39 | PCM.NOTE ---
Date and Time: 08/25/20 0837 Subjective Assessment: patient has no chest pain, denies nausea/vomiting or diarrhea overnight. occult blood + from stool Objective Exam General Appearance: no apparent distress, alert Skin Exam: normal color, warm, dry Respiratory Exam: normal breath sounds, lungs clear, No respiratory distress Cardiovascular Exam: irregular Gastrointestinal/Abdomen Exam: soft, No tenderness, No mass Extremity Exam: normal inspection, normal range of motion OBJECTIVE DATA Vital Signs: Vital Signs - 24 hr Temp Pulse Resp BP Pulse Ox 08/25/20 07:09 98.0 F 88 20 103/55 96 08/25/20 04:00 97.9 F 79 114/56 99 08/25/20 00:00 98.0 F 72 17 115/59 96 08/24/20 19:37 98 F 76 18 108/56 90 L 08/24/20 16:00 98.0 F 78 20 104/62 98 08/24/20 11:47 98.2 F 68 22 103/58 97 Pain Assessment - Last Documented Pain Intensity 0 Intake and Output: Intake & Output 08/22/20 08/23/20 08/24/20 08/25/20 11:59 11:59 11:59 11:59 Intake Total 2000 2203 Output Total 820 3150 Balance 1180 -947 Weight 113.398 kg 111 kg Lab Results: Lab Results-Last 24 Hours 08/24/20 08/24/20 08/24/20 Range/Units 04:30 15:20 19:30 WBC (4.0-10.5) K/mm3 RBC (4.1-5.6) M/mm3 Hgb 9.6 L (12.5-18.0) gm/dl Hct 30.3 L (42-50) % MCV (78-100) fl MCH (26-32) pg MCHC (32-36) g/dl RDW (11.5-14.0) % Plt Count (150-450) K/mm3 MPV (7.5-11.0) fl Gran % (36.0-66.0) % Eos # (Auto) (0-0.5) Absolute Lymphs (auto) (1.0-4.6) Absolute Monos (auto) (0.0-1.3) Lymphocytes % (24.0-44.0) % Monocytes % (0.0-12.0) % Eosinophils % (0.00-5.0) % Basophils % (0.0-0.4) % Absolute Granulocytes (1.4-6.9) Basophils # (0-0.4) Sodium (137-145) mmol/L Potassium (3.5-5.1) mmol/L Chloride (98-107) mmol/L Carbon Dioxide (22-30) mmol/L Anion Gap (5-15) MEQ/L BUN (9-20) mg/dL Creatinine (0.66-1.25) mg/dL Estimated GFR ML/MIN Glucose (74-106) mg/dL Calcium (8.4-10.2) mg/dL Magnesium (1.6-2.3) mg/dL Troponin I (0.000-0.034) ng/mL TSH 3rd Generation 4.510 (0.47-4.68) mIU/L Stl Occult Blood (IFOB) POSITIVE A (NEGATIVE) 08/25/20 08/25/20 Range/Units 04:25 04:25 WBC 4.7 (4.0-10.5) K/mm3 RBC 2.80 L (4.1-5.6) M/mm3 Hgb 8.8 L (12.5-18.0) gm/dl Hct 27.7 L (42-50) % MCV 98.9 (78-100) fl MCH 31.4 (26-32) pg MCHC 31.8 L (32-36) g/dl RDW 13.2 (11.5-14.0) % Plt Count 165 (150-450) K/mm3 MPV 10.4 (7.5-11.0) fl Gran % 64.5 (36.0-66.0) % Eos # (Auto) 0.32 (0-0.5) Absolute Lymphs (auto) 1.00 (1.0-4.6) Absolute Monos (auto) 0.32 (0.0-1.3) Lymphocytes % 21.5 L (24.0-44.0) % Monocytes % 6.9 (0.0-12.0) % Eosinophils % 6.9 H (0.00-5.0) % Basophils % 0.2 (0.0-0.4) % Absolute Granulocytes 3.01 (1.4-6.9) Basophils # 0.01 (0-0.4) Sodium 134 L (137-145) mmol/L Potassium 3.8 (3.5-5.1) mmol/L Chloride 102 (98-107) mmol/L Carbon Dioxide 27 (22-30) mmol/L Anion Gap 9.4 (5-15) MEQ/L BUN 16 (9-20) mg/dL Creatinine 0.78 (0.66-1.25) mg/dL Estimated GFR > 60.0 ML/MIN Glucose 92 (74-106) mg/dL Calcium 8.2 L (8.4-10.2) mg/dL Magnesium 2.0 (1.6-2.3) mg/dL Troponin I < 0.012 (0.000-0.034) ng/mL TSH 3rd Generation (0.47-4.68) mIU/L Stl Occult Blood (IFOB) (NEGATIVE) Radiology Exams: Radiology Procedures Category Date Time Status ABDOMEN AND PELVIS W CONTRAST [CT] Stat Exams 08/23/20 11:46 Completed ECHO W/2D AND DOPPLER [US] Routine Exams 08/24/20 14:31 Taken GALLBLADDER [US] Routine Exams 08/25/20 07:51 Taken Assessment/Plan (1) New onset atrial fibrillation Current Visit: Yes Status: Acute Assessment & Plan: rate is controlled, tsh normal and troponin negative. echo pending, cardiology consult pending. no anticoagulation at this time secondary to anemia and GI bleed, h/h stable with no obvious continue bleeding Code(s): I48.91 - UNSPECIFIED ATRIAL FIBRILLATION (2) Anemia Current Visit: Yes Status: Acute Assessment & Plan: egd today per surgery Code(s): D64.9 - ANEMIA, UNSPECIFIED (3) Nausea and vomiting Current Visit: Yes Status: Acute Code(s): R11.2 - NAUSEA WITH VOMITING, UNSPECIFIED
--- NOTE | 2020-08-25 08:59 | CONS ---
CONSULT DATE: 08/24/2020 HISTORY: A 70 year old gentleman has had some nausea, vomiting, upper abdominal pain over the past three weeks or so. He had some intermittent loose stools. He apparently was admitted yesterday and had a CT scan that did not really show anything significant. Denies any fever or chills. He has had some anemia. His last colonoscopy was several years ago. He had an upper endoscopy multiple years ago as well but nothing recently. He does have chronic back problems, had some chronic neuropathy. He has had pain pump for spinal stenosis in the past. PAST MEDICAL HISTORY: He had some constipation related to his nerve damage and spinal stenosis in the past. PAST SURGICAL HISTORY: Tonsillectomy. Multiple back surgeries for stenosis. Endoscopy. Knee replacement. Pain pump placed according to the patient. Remote open appendectomy as a child. He denied any other abdominal surgery. MEDICATIONS: Gabapentin, baclofen, bupivacaine through epidural pump, paroxetine, MiraLAX, Voltaren. ALLERGIES: NKDA. FAMILY HISTORY: Negative for colorectal cancer or stomach cancer according to the patient. SOCIAL HISTORY: No current smoking. No alcohol abuse. REVIEW OF SYSTEMS: Fourteen systems reviewed per admission assessment. He has arthritis. He has some depression and some prostate problems in the past as well as the back problems and neuropathy in the past. He denies any gallbladder work up in the past. No chest pain or palpitations. 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 PHYSICAL EXAMINATION: He is afebrile. Vital signs stable. GENERAL: No acute distress. HEENT: Sclera nonicteric. NECK: No JVD. CHEST: Equal excursion, nonlabored breathing. ABDOMEN: Soft. No peritoneal signs. EXTREMITIES: He has some chronic neuropathy. He has pain pump on lower left anteriorly. NEURO: Alert, oriented. He said he has chronic neuropathy. PSYCH: Appropriate mood and affect. LAB DATA AND TESTS: His hemoglobin was 9.6 and apparently was 9.1 when he came in. Liver function test: Bilirubin 0.5. His platelets were 162,000. White count was 6. IMPRESSION: Some nausea, vomiting, upper abdominal aches and pains. Unclear etiology. It could be anything from gastritis, peptic ulcer disease, esophagitis or biliary colic. He does have some anemia. He may have had polyps years ago. He would benefit from EGD and colonoscopy for etiology of his anemia. Additionally, I feel that he would benefit from gallbladder ultrasound for further evaluation to rule out other causes of upper abdominal pain, nausea, vomiting, some intermittent loose stools, epigastric pain and discomfort. However at this time he is not agreeable to considering prep for colonoscopy. Will see about having EGD tomorrow if he is okayed from cardiology and anesthesia standpoint. Will also check gallbladder ultrasound for further evaluation. He understands general risk of upper endoscopy as bleeding, infection, risk of bowel injury or perforation, risk of missed or nondiagnosis or inability to determine etiology of his symptoms. We will get consent for EGD, possible biopsy tomorrow as well as order gallbladder ultrasound.
--- NOTE | 2020-08-25 09:06 | XRAY ---
Indication: Nausea and vomiting. Two-dimensional gallbladder sonogram performed. Comparison: None Gallbladder is completely contracted and reasonably explains 3.8 mm wall thickening. No obvious gallstones or pericholecystic fluid. Common bile duct measures 4.9 mm. No intrahepatic biliary distention. Visualized portions of liver fatty in echogenicity without focal solid/cystic mass or ascites. Remaining visualized pancreas and right kidney sonographically unremarkable. Right kidney measures 11.2 cm in length. Impression: Contracted gallbladder and fatty liver.
[2020-08-25] MEDS: PROTONIX 40 MG IV IV SCH ×2 (10:13→22:24)
[2020-08-25] MEDS: SODIUM CHLORIDE IJ SCH (10:51)
[2020-08-25] MEDS: [UNRECOGNIZED DRUG - OTHER] IJ SCH (10:51)
[2020-08-25] MEDS: BUPIVACAINE HCL IJ SCH (10:51)
[2020-08-25] MEDS: NEURONTIN 300 MG PO SCH ×4 (11:12→22:19)
[2020-08-25] MEDS: LIORESAL 10 MG PO SCH ×4 (11:12→22:19)
[2020-08-25] MEDS: Paxil 20 MG PO SCH (11:12)
[2020-08-25] MEDS: Miralax Powder 17GM PACKET PO SCH (11:12)
[2020-08-25] MEDS: Lactated Ringers 1,000 ML IV SCH (12:48)
[2020-08-25] MEDS ORDERED: SUBLIMAZE 100 MCG/2 ML IV ONE ×2 (13:35)
[2020-08-25] MEDS ORDERED: VERSED 5 MG/5 ML IV ONE ×2 (13:35)
[2020-08-25] MEDS: Sodium Chloride 0.9% 1000 ML 1,000 ML IV SCH ×2 (17:55→23:37)
[2020-08-25] MEDS ORDERED: Lopressor 25MG Tab PO SCH (22:00)
[2020-08-26] MEDS: Lactated Ringers 1,000 ML IV SCH (04:23)
[2020-08-26 04:44] LABS: Absolute Neutrophil Ct (ANC) 3.13 (1.4-6.9); BASOPHIL % 0.2 % (0.0-0.4); Basophil (Absolute #) 0.01 (0-0.4); Eosinophil % 6.9 % (0.00-5.0); Eosinophil (Absolute #) 0.35 (0-0.5); Hematocrit 26.7 % (42-50); Hemoglobin 8.6 gm/dl (12.5-18.0); Lymphocyte (Absolute #) 1.18 (1.0-4.6); Lymphocytes % 23.3 % (24.0-44.0); Mean Cell Volume 99.3 fl (78-100); Mean Corpuscular Hgb Concent. 32.2 g/dl (32-36); Mean Platelet Volume 10.4 fl (7.5-11.0); Monocytes % 7.9 % (0.0-12.0); Neutrophil % 61.7 % (36.0-66.0); Platelet Count 163 K/mm3 (150-450); Red Blood Count 2.69 M/mm3 (4.1-5.6); Red Cell Distribution Width 13.1 % (11.5-14.0); White Blood Count 5.1 K/mm3 (4.0-10.5)
[2020-08-26 05:02] LABS: ALKALINE PHOSPHATASE 148 U/L (38-126); ANION GAP 5.9 MEQ/L (5-15); BLOOD UREA NITROGEN 11 mg/dL (9-20); CHLORIDE 103 mmol/L (98-107); Calcium 8.1 mg/dL (8.4-10.2); Carbon Dioxide 28 mmol/L (22-30); Creatinine 1 0.74 mg/dL (0.66-1.25); EST GLOMERULAR FILTRATION RATE > 60.0 ML/MIN; Glucose 89 mg/dL (74-106); Potassium 3.6 mmol/L (3.5-5.1); SGOT/AST 40 U/L (17-59); SGPT/ALT 32 U/L (0-50); SODIUM 134 mmol/L (137-145); Total Protein 5.8 g/dL (6.3-8.2)
--- NOTE | 2020-08-26 08:18 | OP ---
SURGERY DATE/TIME: 08/25/2020 2839 PREOPERATIVE DIAGNOSIS: Epigastric pain, nausea and vomiting. POSTOPERATIVE DIAGNOSES: 1) First portion of duodenum ulcer with no current active bleeding. 2) Gastritis. 3) Short segment distal esophagitis. PROCEDURES: 1) EGD with cold biopsy of antrum for Helicobacter pylori. 2) Cold biopsy distal esophagus. 3) Surgeon monitored 15 minutes of IV sedation. SURGEON: Dr. Roge Ruffin. ANESTHESIA: IV sedation IV Fentanyl 150 mcg, Versed 8 mg. ESTIMATED BLOOD LOSS: Minimal. INDICATIONS: As noted above. Risks and benefits explained in detail and not limited to and consent obtained. DESCRIPTION OF PROCEDURE AND FINDINGS: The patient is taken to the endoscopy room. IV anesthesia introduced. He was sprayed with Benzocaine spray. Continuous pulse oximetry and blood pressure monitoring. He is hemodynamically stable. He was incrementally sedated with IV Versed and IV Fentanyl up to a total of 150 mcg of Fentanyl. He was already on Fentanyl pump. He was given IV Versed 8 mg. He seemed to be in comfortable state. Saturations 95-96% had dropped from 100%. At this point bite block positioned. Official time out and no disagreement with the planned procedure. Video gastroscope easily passed over the back of the tongue down the esophagus to the stomach. He had some gastritis. He had a patent pylorus. First portion of the duodenum had ulcer crater and duodenal ulcer. No active bleeding now. Because of the angulation, it was not easy to try to pass the scope around to the more distal duodenum. It was felt that this is not warranted given this ulcer at this time. I did not want to use any due force. Therefore the scope despite a couple of attempts it gently passed and the scope was then passed back up into the stomach. Cold biopsy taken to evaluate for gastritis. Good hemostasis noted. There were no signs of any obvious masses. On retroflex the gastroesophageal junction is snug against the scope. No signs of any sliding hiatal hernia. The scope is straightened. Gastroesophageal junction about 40 cm. He had a very short segment of 1 cm or so of distal gastroesophagitis. Otherwise the remainder of the esophagus no signs of any obvious masses or mucosal lesions. Cold had been taken of distal esophagus as well as ulcer in the antrum for Helicobacter pylori. He tolerated the procedure well. Findings discussed with the family out in the waiting area. I will order an upper GI study tomorrow to get more of a road map of this bleeding ulcer.
[2020-08-26] MEDS: Sodium Chloride 0.9% 1000 ML 1,000 ML IV SCH (08:28)
--- NOTE | 2020-08-26 08:55 | PCM.NOTE ---
Date and Time: 08/26/20 0852 Subjective Assessment: patient had heart rate down to 40's last night during sleep per nursing, he denies any complaints. no nausea or vomiting, no diarrhea. overall feels better, egd showed duodenal ulcer Objective Exam General Appearance: no apparent distress, alert Respiratory Exam: normal breath sounds, lungs clear, No respiratory distress Cardiovascular Exam: regular rate/rhythm, normal heart sounds Gastrointestinal/Abdomen Exam: soft, No tenderness, No mass Extremity Exam: normal inspection, normal range of motion OBJECTIVE DATA Vital Signs: Vital Signs - 24 hr Temp Pulse Resp BP Pulse Ox 08/26/20 07:39 98.3 F 68 16 141/63 94 L 08/26/20 04:00 98 F 57 L 16 103/62 96 08/26/20 00:00 98.6 F 64 22 107/58 96 08/25/20 19:35 98.0 F 77 23 131/63 96 08/25/20 16:00 98.0 F 79 20 117/56 96 08/25/20 12:14 98.0 F 88 20 103/55 96 08/25/20 12:00 97.7 F 72 18 101/51 97 Pain Assessment - Last Documented Pain Intensity 0 Intake and Output: Intake & Output 08/23/20 08/24/20 08/25/20 08/26/20 11:59 11:59 11:59 11:59 Intake Total 19993 1567 Output Total 820 3150 2050 Balance 8746 -992 -502 Weight 113.398 kg 111 kg 111 kg Lab Results: Lab Results-Last 24 Hours 08/26/20 08/26/20 Range/Units 04:38 04:38 WBC 5.1 (4.0-10.5) K/mm3 RBC 2.69 L (4.1-5.6) M/mm3 Hgb 8.6 L (12.5-18.0) gm/dl Hct 26.7 L (42-50) % MCV 99.3 (78-100) fl MCH 32.0 (26-32) pg MCHC 32.2 (32-36) g/dl RDW 13.1 (11.5-14.0) % Plt Count 163 (150-450) K/mm3 MPV 10.4 (7.5-11.0) fl Gran % 61.7 (36.0-66.0) % Eos # (Auto) 0.35 (0-0.5) Absolute Lymphs (auto) 1.18 (1.0-4.6) Absolute Monos (auto) 0.40 (0.0-1.3) Lymphocytes % 23.3 L (24.0-44.0) % Monocytes % 7.9 (0.0-12.0) % Eosinophils % 6.9 H (0.00-5.0) % Basophils % 0.2 (0.0-0.4) % Absolute Granulocytes 3.13 (1.4-6.9) Basophils # 0.01 (0-0.4) Sodium 134 L (137-145) mmol/L Potassium 3.6 (3.5-5.1) mmol/L Chloride 103 (98-107) mmol/L Carbon Dioxide 28 (22-30) mmol/L Anion Gap 5.9 (5-15) MEQ/L BUN 11 (9-20) mg/dL Creatinine 0.74 (0.66-1.25) mg/dL Estimated GFR > 60.0 ML/MIN Glucose 89 (74-106) mg/dL Calcium 8.1 L (8.4-10.2) mg/dL Total Bilirubin 0.60 (0.2-1.3) mg/dL AST 40 (17-59) U/L ALT 32 (0-50) U/L Alkaline Phosphatase 148 H (38-126) U/L Serum Total Protein 5.8 L (6.3-8.2) g/dL Albumin 3.0 L (3.5-5.0) g/dL Radiology Exams: Radiology Procedures Category Date Time Status ECHO W/2D AND DOPPLER [US] Routine Exams 08/24/20 14:31 Taken GALLBLADDER [US] Routine Exams 08/25/20 07:51 Completed UPPER GI W/AIR Routine Exams 08/26/20 08:00 Ordered Multi-Disciplinary Progress Notes: Multi-Disciplinary Progress Notes 08/25/20 14:06 Case Management Note by Lis Jimenez PATIENT DENIES ANY NEW NEEDS AT TIME OF DC. HE WAS ONCE AGAIN OFFERED HHC OR OTPT FOR WEAKNESS BUT AGAIN REFUSED SERVICES AT THIS TIME. PATIENT PLANS TO RETURN HOME TO PRIOR LEVEL OF FUNCTIONING Initialized on 08/25/20 14:06 - END OF NOTE Assessment/Plan (1) New onset atrial fibrillation Current Visit: Yes Status: Acute Assessment & Plan: no anticoagulation due to bleeding with duodenal ulcer, will start on iron and high dose PPI bid with repeat in cbc in a week for consideration of when to start eliquis per Dr Correa PCP and Dr Lundberg, discussed risk of bleeding with anticoagulation seems greater than risk of clot due to a fib and patient understands. will d/c metoprolol due to bradycardia, heart rate was consistently 70-80 range on admission with no treatment. Code(s): I48.91 - UNSPECIFIED ATRIAL FIBRILLATION (2) Duodenal ulcer Current Visit: Yes Status: Acute Assessment & Plan: continue PPI bid, h/h stable, no anticoagulation at this time. path from EGD pending. (3) Anemia Current Visit: Yes Status: Acute Assessment & Plan: start iron, high dose PPI for ulcer Code(s): D64.9 - ANEMIA, UNSPECIFIED (4) Nausea and vomiting Current Visit: Yes Status: Acute Code(s): R11.2 - NAUSEA WITH VOMITING, UNSPECIFIED
[2020-08-26] MEDS ORDERED: FEOSOL 325 MG PO SCH (10:00)
[2020-08-26] MEDS: NEURONTIN 300 MG PO SCH (10:09)
[2020-08-26] MEDS: PROTONIX 40 MG IV IV SCH (10:09)
--- NOTE | 2020-08-26 10:09 | XRAY ---
Indication: Ulcer. Nausea and vomiting. Comparison: None Double contrast upper GI exam performed. Exam technically difficult due to patient's limited mobility. Patient ingested barium without miss swallow or aspiration. Esophagus is negative for focal stricture, obstruction, or filling defect. Barium emptied into the stomach. No hiatal hernia or gastroesophageal reflux demonstrated. Stomach is normally distended. Contours of the lesser and greater curvature appears smooth. No filling defect or acute ulcerations. Normal gastric emptying with incidental small proximal duodenal diverticulum. Remaining duodenal sweep unremarkable. Impression: Small proximal duodenal diverticulum. Remaining double contrast upper GI exam is negative. Approximately 2.4 minute fluoroscopy used.
[2020-08-26] MEDS: LIORESAL 10 MG PO SCH (10:10)
[2020-08-26] MEDS: Paxil 20 MG PO SCH (10:10)
[2020-08-26] MEDS: Miralax Powder 17GM PACKET PO SCH (10:10)
--- NOTE | 2020-08-26 11:48 | PCM.DS ---
Discharge Summary Date of Admission: 08/23/20 16:45 Admitting Physician: CLAUDE COE Consults: Consults on Case 08/24/20 08:35 Consult Cardiology ROUTINE Consult Surgery ROUTINE Primary Care Provider: DOMI CORNEJO Allergies Allergies No Known Drug Allergies Allergy (Verified 08/23/20 11:18) Hospital Summary - Hospital Course Hospital Course: patient was admitted with persistent nausea and vomiting, found to have anemia and new onset a fib. had decreased in h/h with lovenox, EGD with Dr Ruffin showed duodenal ulcer, specimens pending. off lovenox and on PPI nausea and vomiting are resolved, no visible blood in the stool. his heart rate was not elevated, had bradycardia overnight with metoprolol 25m so it was stopped. plan to repeat h/h, treat ulcer then start on eliquis when felt safe from ulcer eula dpoint with PCP Dr Cornejo - Vitals & Intake/Output Vital Signs: Vital Signs Temperature 98.3 F 08/26/20 07:39 Pulse Rate 68 08/26/20 07:39 Respiratory Rate 16 08/26/20 07:39 Blood Pressure 141/63 08/26/20 07:39 O2 Sat by Pulse Oximetry 94 L 08/26/20 07:39 Intake & Output: Intake & Output 08/23/20 08/24/20 08/25/20 08/26/20 11:59 11:59 11:59 11:59 Intake Total 19993 1567 Output Total 820 3150 2050 Balance 1180 -327 483 Weight 113.398 kg 111 kg 111 kg - Lab Result Diagrams: 08/26/20 04:38 08/26/20 04:38 Lab Results-Last 24 Hrs: Lab Results-Last 24 Hours 08/26/20 08/26/20 Range/Units 04:38 04:38 WBC 5.1 (4.0-10.5) K/mm3 RBC 2.69 L (4.1-5.6) M/mm3 Hgb 8.6 L (12.5-18.0) gm/dl Hct 26.7 L (42-50) % MCV 99.3 (78-100) fl MCH 32.0 (26-32) pg MCHC 32.2 (32-36) g/dl RDW 13.1 (11.5-14.0) % Plt Count 163 (150-450) K/mm3 MPV 10.4 (7.5-11.0) fl Gran % 61.7 (36.0-66.0) % Eos # (Auto) 0.35 (0-0.5) Absolute Lymphs (auto) 1.18 (1.0-4.6) Absolute Monos (auto) 0.40 (0.0-1.3) Lymphocytes % 23.3 L (24.0-44.0) % Monocytes % 7.9 (0.0-12.0) % Eosinophils % 6.9 H (0.00-5.0) % Basophils % 0.2 (0.0-0.4) % Absolute Granulocytes 3.13 (1.4-6.9) Basophils # 0.01 (0-0.4) Sodium 134 L (137-145) mmol/L Potassium 3.6 (3.5-5.1) mmol/L Chloride 103 (98-107) mmol/L Carbon Dioxide 28 (22-30) mmol/L Anion Gap 5.9 (5-15) MEQ/L BUN 11 (9-20) mg/dL Creatinine 0.74 (0.66-1.25) mg/dL Estimated GFR > 60.0 ML/MIN Glucose 89 (74-106) mg/dL Calcium 8.1 L (8.4-10.2) mg/dL Total Bilirubin 0.60 (0.2-1.3) mg/dL AST 40 (17-59) U/L ALT 32 (0-50) U/L Alkaline Phosphatase 148 H (38-126) U/L Serum Total Protein 5.8 L (6.3-8.2) g/dL Albumin 3.0 L (3.5-5.0) g/dL - Radiology Exams Ordered Rad Exams-Entire Visit: Radiology Procedures Category Date Time Status ECHO W/2D AND DOPPLER [US] Routine Exams 08/24/20 14:31 Taken GALLBLADDER [US] Routine Exams 08/25/20 07:51 Completed UPPER GI W/AIR Routine Exams 08/26/20 08:00 Completed Discharge Exam General Appearance: no apparent distress, alert Neck Exam: normal inspection Respiratory Exam: normal breath sounds, lungs clear, No respiratory distress Cardiovascular Exam: irregular Gastrointestinal/Abdomen Exam: soft, No tenderness, No mass Extremity Exam: normal inspection, normal range of motion Final Diagnosis/Problem List - Final Discharge Diagnosis/Problem (1) New onset atrial fibrillation Current Visit: Yes Status: Acute Assessment & Plan: rate controlled with no intervention, thyroid functions normal and echo pending. will f/u with Dr Lundberg, plan to start eliquis when h/h improved and ulcer thought to be healing with PPI Code(s): I48.91 - UNSPECIFIED ATRIAL FIBRILLATION (2) Duodenal ulcer Current Visit: Yes Status: Acute Assessment & Plan: protonix 40mg bid, no nsaids, no aspirin (3) Anemia Current Visit: Yes Status: Acute Code(s): D64.9 - ANEMIA, UNSPECIFIED (4) Nausea and vomiting Current Visit: Yes Status: Acute Code(s): R11.2 - NAUSEA WITH VOMITING, UNSPECIFIED - Discharge Disposition: Home, Self-Care Condition: Stable Prescriptions: New Ferrous Sulfate 325 mg [Feosol 325 mg] 325 mg PO DAILY #30 tablet Pantoprazole Sodium [Protonix] 40 mg PO BID #60 tablet.dr Continue Gabapentin [Neurontin] 600 mg PO TID Baclofen 20 mg PO TID Polyethylene Glycol 3350 [Miralax] 17 gm PO DAILY Paroxetine HCl 20 mg [Paxil 20 MG] 20 mg PO DAILY Bupivacaine HCl/0.9 % NaCl/Pf [Bupivacaine 0.125%-Ns Autofusr] 600 mcg EPIDURAL DAILY Discontinued Diclofenac Sodium 50 mg [Voltaren 50 mg] 100 mg PO BID Instructions: Atrial Fibrillation (DC) Additional Instructions: SCHEDULE OUTPT SLEEP STUDY WHEN PT DISCHARGES no asprin or nsaids, may take tylenol if needed. take protonix as prescribed, return for severe pain, passage of blood in stool or vomitus or other new complaints. have cbc drawn in 1 week as ordered and f/u with Dr Cornejo Follow up with: DOMI CORNEJO [Primary Care Provider] - 09/06/20 9:00 am LOTTIE RUFFIN [COURTESY STAFF] -
[2020-08-26 12:16] VITALS: BP 134/63; PULSE 66; O2SAT 97
--- NOTE | 2020-08-30 13:20 | ECHO ---
DATE OF PROCEDURE: 08/24/2020 CLINICAL INFORMATION: New onset atrial fibrillation. The M-mode 2D, and Doppler echocardiogram including color flow Doppler shows the left ventricle is normal in size at 4.7 cm. There is no thrombus present. The septal wall thickness is normal at 1.0 cm. The left ventricular posterior wall thickness is normal at 0.9 cm. There is normal contractility of the left ventricle. The ejection fraction is calculated to be 52%. The right ventricle is dilated with a dimension of 3.2 cm. The left atrium is mildly dilated with a dimension of 4.3 cm. The interatrial septum and the right atrium is not well visualized. There is limited acoustic window. The aortic valve opens well. There is no aortic regurgitation. The mitral valve is normal. There is no mitral regurgitation present. There is no thrombus or vegetation noted. The pulmonic valve is not well visualized. The aortic root is borderline dilated at 3.8 cm. There is no pericardial effusion present. IMPRESSION: 1) TECHNICALLY DIFFICULT ECHOCARDIOGRAM. 2) NORMAL CONTRACTILITY OF THE LEFT VENTRICLE. 3) MILD LEFT ATRIAL DILATATION. 4) BORDERLINE AORTIC ROOT DILATATION.
== END 2020-08-26 13:36 | disposition home or self-care (01) ==
LOC: ED 10:56 → MED SURG 16:45
PROVIDERS: ADMIT Family Medicine; ATTEND Family Medicine
DX: I48.91 Unspecified atrial fibrillation (principal); K26.4 Chronic or unspecified duodenal ulcer with hemorrhage; K20.90 Esophagitis, unspecified without bleeding; R11.2 Nausea with vomiting, unspecified; K29.70 Gastritis, unspecified, without bleeding; R10.10 Upper abdominal pain, unspecified; D64.9 Anemia, unspecified; Z79.899 Other long term (current) drug therapy
CPT/HCPCS: 36000; 36415; 51702; 74177; 74246; 76705; 80048; 80053; 81015; 82274; 83690; 83735; 84443; 84484; 85014; 85018; 85025; 93005; 93041; 93268; 93306; 94760; 96360; 96361; 96372; 96374; 96375; 96376; 99285; J1650; J2250; J2405; J3010; Q3014; U0003; A9270-GY; G0378

== ENCOUNTER 2020-10-25 08:32 | Day surgery (SDC) | payer MEDICARE, BC ==
--- NOTE | 2020-10-22 14:07 | HP ---
DATE OF SURGERY: 10/25/2020 HISTORY OF PRESENT ILLNESS: The patient is a 70 year-old who had an ulcer in the past on upper endoscopy and follow up upper endoscopy. He has some dysphagia at this time and is need of EGD possible biopsy possible dilatation. Additionally, he is due for a follow up screening colonoscopy. His last colonoscopy was ten years or so ago according to the patient. PAST MEDICAL HISTORY: Rheumatoid arthritis. Depression. PAST SURGICAL HISTORY: Tonsillectomy. Back surgery. Left knee replacement. Endoscopy in the past. Pain pump in the past. Appendectomy in the past. MEDICATIONS: Baclofen, Paxil, ferrous sulfate, pantoprazole. ALLERGIES: NKDA. FAMILY HISTORY: Hearing problems. His daughter with pleomorphic sarcoma. Negative for colon cancer or stomach cancer. SOCIAL HISTORY: No smoking or alcohol abuse. REVIEW OF SYSTEMS: Fourteen systems reviewed. No chest pain or palpitations. Other systems negative or noncontributory as above and per preadmission questionnaire. PHYSICAL EXAMINATION: GENERAL: No acute distress. HEENT: Sclerae nonicteric. NECK: No JVD. CHEST: Equal excursion, nonlabored breathing. CVS: Regular rate and rhythm. ABDOMEN: Soft. No peritoneal signs. EXTREMITIES: No significant edema. NEURO: Alert, oriented, moving extremities symmetrically. PSYCH: Appropriate mood and affect. IMPRESSION: History of some dysphagia, history of ulcer in the past. He is in need of follow up upper endoscopy for further evaluation possible dilatation depending operative findings as well as follow up screening colonoscopy as last one was ten years ago. Risks and benefits explained in detail including bleeding or infection, risk of bowel injury or perforation possibly requiring open procedure, risk of missed or nondiagnosis or incomplete exam possibly requiring barium swallow, barium enema, other studies or procedures, general risk of anesthesia or sedation, risk of bowel prep but not limited to. Consent obtained, will proceed with outpatient EGD possible dilatation and colonoscopy.
[~2020-10-25 08:32] MED LIST: Lactated Ringers 1,000 ML IV ONE; Lactated Ringers 1,000 ML IV SCH
[2020-10-25] MEDS ORDERED: DIPRIVAN 200 MG/20 ML IV ONE ×4 (10:44→11:29)
[2020-10-25] MEDS ORDERED: SUBLIMAZE 100 MCG/2 ML ONE (11:20)
[2020-10-25] MEDS ORDERED: NEURONTIN 300 MG PO ONE (12:00)
[2020-10-25] MEDS ORDERED: NON-FORMULARY ITEM (Baclofen [Baclofen] 20 MG) PO ONE (12:00)
--- NOTE | 2020-10-25 13:17 | OP ---
SURGERY DATE/TIME: 10/25/2020 1054 PREOPERATIVE DIAGNOSES: 1) Prior history of ulcer in the past, history of dysphagia. 2) Need for screening colonoscopy. POSTOPERATIVE DIAGNOSES: 1) Moderate gastritis (ulcer area healed). 2) Short segment distal esophagitis. 3) Distal esophageal narrowing and spasm requiring dilatation. 4) Polyps cecum. 5) Pancolonic diverticulosis. 6) Small internal and external hemorrhoids. 7) Fair but limited bowel prep. PROCEDURES: 1) EGD with cold biopsy of distal esophagus to evaluate for short segment of esophagitis. 2) Cold biopsy body of antrum to evaluate for Helicobacter pylori. 3) Distal esophageal dilatation (size 20 balloon dilator). 4) Colonoscopy to cecum hot snare polypectomy of cecal polyp. 5) Hot biopsy of smaller second cecal polyp. SURGEON: Dr. Roge Ruffin. ANESTHESIA: MAC. ESTIMATED BLOOD LOSS: Minimal. INDICATIONS: As noted above. Risks and benefits explained in detail and not limited to and consent obtained. DESCRIPTION OF PROCEDURE AND FINDINGS: The patient is taken to the operating room. MAC anesthesia introduced. After official time out and no disagreement with planned procedure, bite block positioned. Video gastroscope passed down the esophagus. The esophagus had somewhat narrowing and spasm. He had been having some problems with food sticking here. It was felt it warranted dilatation at the end. There is no obvious mass. There is just a short segment of mild distal inflammation. The scope passed through in the duodenum. In the second and first portion of the duodenum ulcer area healed. He had moderate gastritis but no active ulcer in the stomach. Cold biopsy is taken to evaluate for Helicobacter pylori. On retroflex the gastroesophageal junction is fairly snug against the scope. There is no large hiatal hernia that was visible endoscopically. Scope pulled back and gastroesophageal junction about 40 cm. Short segment of distal inflammation, cold biopsy accomplished to evaluate for esophagitis. Good hemostasis noted. Scope passed back down in the stomach. The 20 balloon dilator carefully inserted and pulled up to the distal esophageal narrowed area and was carefully inflated first stage 30 seconds, second stage 30 seconds, final stage 2 minutes with size 20 balloon dilator, catheter released and withdrawn. The scope much more easily passed through this area. There is no evidence of any full thickness issues, minor mucosal abrasion. Good hemostasis noted. The remainder of the esophagus was grossly unremarkable. No signs of any obvious masses or lesions. The scope is withdrawn. The patient tolerated the procedure well. Attention is then turned to colonoscopy. Digital rectal exam did not reveal any rectal masses. Video colonoscope inserted and passed up through the tortuous sigmoid, descending, transverse colon and ascending colon. Requiring two staff members and positioning the patient on his back, the scope finally was able to reach the tortuous colon to the cecum. Appendiceal orifice and valve well visualized. A 6 mm polyp was removed with hot snare polypectomy and brief bursts of cautery. Good hemostasis noted. The base appeared to be viable. There was scant ooze. There was another smaller 2 to 2.5 mm polyp removed with hot biopsy forceps and brief bursts of cautery. Good hemostasis noted. The scope is slowly and carefully withdrawn over 15 minutes. No signs of any large polyps, masses or obstructing lesions throughout the remainder of the colon. Prep overall was fair but limited due to some areas of liquidy, semisolid stool suction irrigated as clear as possible just slightly limiting exam for small lesions. He did have pancolonic diverticulosis, some small internal and external hemorrhoids. No signs of any large polyps, masses or obstructing lesions. The patient tolerated the procedure well. There were no immediate complications. There was no family here to discuss the findings with.
[2020-10-25 13:19] VITALS: BP 158/90; PULSE 75; O2SAT 98
== END 2020-10-25 13:30 | disposition home or self-care (01) ==
LOC: SDC 08:32
PROVIDERS: ATTEND Surgery
DX: Z12.11 Encounter for screening for malignant neoplasm of colon (principal); K29.70 Gastritis, unspecified, without bleeding; K20.90 Esophagitis, unspecified without bleeding; K22.2 Esophageal obstruction; K22.4 Dyskinesia of esophagus; K57.30 Diverticulosis of large intestine without perforation or abscess without bleeding; K64.4 Residual hemorrhoidal skin tags; K64.8 Other hemorrhoids; D12.0 Benign neoplasm of cecum; Z87.11 Personal history of peptic ulcer disease; Z79.899 Other long term (current) drug therapy
CPT/HCPCS: 88305; 99100; J2704; J3010

== ENCOUNTER 2022-07-10 21:45 | Observation (INO) | payer MEDICARE ==
--- NOTE | 2022-07-10 22:00 | ERPHSYRPT ---
- History of Present Illness Time Seen by Provider: 07/10/22 22:00 Source: patient, family Exam Limitations: clinical condition Physician History: This is a 72-year-old white male patient who does not ambulate around much at all and has not been out of the house in over a year secondary to severe back pain from a degenerative disc problem in his back that is chronic. He had a surgery performed in 2012 at [facility]. Since that time his back pain has been significant, chronic and severe enough to be placed on baclofen and fentanyl pain pump. Approximately an hour prior to arrival, the patient, according to the patient's spouse, was having garbled speech. It came on suddenly. Patient had commented that he was not feeling well just prior to the change in his speech. Patient does have a history of atrial fibrillation but has not been on metoprolol for over a year. Patient was was seen by Dr. Navarro, his clinical information systems director and was placed on metoprolol today. They had not picked up the prescription of the metoprolol. Patient denies shortness of breath. He denies chest pain. He has no abdominal pain. The patient of Dr. Correa Timing/Duration: today Severity: moderate Character of Deficits: impaired speech, other (Impaired speech) Deficits: cannot stand (Chronic), cannot walk (Chronic) Baseline/Normal Cognition: alert oriented x 3 Current Cognition: alert oriented x 3 Baseline Gait: unable to walk Associated Symptoms: slurred speech Allergies/Adverse Reactions: No Known Drug Allergies Allergy (Verified 07/10/22 22:02) Home Medications: Gabapentin [Neurontin] 600 mg PO TID 08/27/14 [History] Baclofen 20 mg PO TID 12/31/15 [History] Paroxetine HCl 20 mg [Paxil 20 MG] 10 mg PO DAILY 12/13/17 [History] Fentanyl Citrate-0.9 % NaCl/Pf [Fentanyl 1,000 Mcg/100 ml-Ns] 1 mcg UD 10/25/20 [History] Hx Influenza Vaccination/Date Given: No (fall 2013) Hx Pneumococcal Vaccination/Date Given: No Travel Risk - International Travel Have you traveled outside of the country in past 3 weeks: No - Coronavirus Screening Are you exhibiting any of the following symptoms?: No Close contact with a COVID-19 positive Pt in past 14-21 Days: No - Review of Systems Constitutional: No Symptoms, Weakness Eyes: No Symptoms (Generalized) Ears, Nose, & Throat: No Symptoms Respiratory: No Symptoms Cardiac: No Symptoms Abdominal/Gastrointestinal: No Symptoms Genitourinary Symptoms: No Symptoms Musculoskeletal: Back Pain (Chronic) Skin: No Symptoms Neurological: Other (Change in patient's speech per his spouse) Psychological: No Symptoms Endocrine: No Symptoms Hematologic/Lymphatic: No Symptoms Immunological/Allergic: No Symptoms All Other Systems: Reviewed and Negative - Past Medical History Pertinent Past Medical History: Yes Neurological History: Other ENT History: No Pertinent History Cardiac History: Arrhythmia Respiratory History: No Pertinent History Endocrine Medical History: No Pertinent History Musculoskeletal History: Rheumatoid Arthritis GI Medical History: Ulcer, Other History: No Pertinent History Psycho-Social History: Depression Male Reproductive Disorders: Prostate Problems Other Medical History: pt has arthritis in right knee and bilateral shoulders, pt has difficulty swallowing.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 a-fib, sleep apnea, anemia - Past Surgical History Past Surgical History: Yes Neuro Surgical History: No Pertinent History Cardiac: No Pertinent History Respiratory: No Pertinent History Gastrointestinal: Appendectomy Genitourinary: No Pertinent History Musculoskeletal: Other Male Surgical History: No Pertinent History Other Surgical History: states back t-10,11,12 laminectomy r/t thoracic stenosis. Colonoscopy , left knee replacement, EGD with dilatation 2015 - Social History Smoking Status: Never smoker Exposure to second hand smoke: No Drug Use: none Patient Lives Alone: No - Nursing Vital Signs Nursing Vital Signs: Initial Vital Signs Temperature 98.8 F 07/10/22 21:54 Pulse Rate 90 07/10/22 21:54 Respiratory Rate 20 07/10/22 21:54 Blood Pressure 170/84 07/10/22 21:54 O2 Sat by Pulse Oximetry 95 07/10/22 21:54 Pain Scale Pain Intensity 8 - Reshma Coma Scale Best Eye Response ([place]): (4) open spontaneously Best Motor Response (Reshma): (6) obeys commands - Physical Exam General Appearance: no apparent distress, alert, anxiety, obese Eye Exam: bilateral eye: normal inspection, PERRL, EOMI Ears, Nose, Throat Exam: normal ENT inspection, moist mucous membranes Neck Exam: normal inspection, non-tender, supple, full range of motion Respiratory: normal breath sounds, lungs clear, airway intact, No chest t enderness, No respiratory distress Gastrointestinal: soft, normal bowel sounds, No tenderness Rectal Exam: not done Back Exam: normal inspection, normal range of motion, No CVA tenderness, No vertebral tenderness Extremity Exam: normal inspection, normal range of motion, pelvis stable Mental Status: alert, oriented x 3, cooperative occupancy specialist Exam: normal hearing, normal speech, PERRL, tongue midline Coordination/Gait: normal finger to nose Skin Exam: normal color, warm, dry SpO2 Interpretation: normal O2 Delivery: Room Air - Course Nursing assessment & vital signs reviewed: Yes EKG Interpreted by Me: RATE (87), A-fib, Left [place] Deviation, NORMAL QRS, NORMAL ST-T, ST Elev, Other (No acute ischemic changes) Ordered Tests: Active Orders 24 hr Category Date Time Status Transverse Abdominal Muscle Surgeon STAT Care 07/10/22 22:14 Active EKG-ER Only STAT Care 07/10/22 22:14 Active IV Insertion STAT Care 07/10/22 22:14 Active NPO (ED) STAT Care 07/10/22 22:14 Active POCT Glucose Check STAT Care 07/10/22 22:14 Active Pulse Oximetry (ED) STAT Care 07/10/22 22:14 Active HEAD WITHOUT CONTRAST [CT] Stat Exams 07/10/22 22:00 Taken BLOOD CULTURE Stat Lab 07/10/22 22:14 Ordered CBC W DIFF Stat Lab 07/10/22 22:14 Ordered CMP Stat Lab 07/10/22 22:14 Ordered UA W/RFX CULTURE Stat Lab 07/10/22 Ordered - Progress Progress: improved, re-examined Progress Note: 07/10/22 23:28 Medical decision making: This patient was reviewed with and he examined by telemetry neurologist Dr. Gautam. Patient is diagnosed with a TIA. He has complete resolution of his symptoms. The recommendation is to place him in observation and perform a CTA of the head and neck, bilateral carotid endarterectomies and echocardiogram. He should also be started on Eliquis and control his atrial fibrillation. First dose of Eliquis should be given tonight. These were the recommendations of the neurologist. - Departure Departure Disposition: Observation Clinical Impression: TIA (transient ischemic attack) Condition: Stable Critical Care Time: Yes Critical Care Time(excluding separately billable procedures): Critical 30-74 mins (40 minutes) Referrals: DOMI CORREA [Primary Care Provider] - Follow up/PCP as directed
[2022-07-10] MEDS ORDERED: Lopressor 25MG Tab PO ONE (23:40)
[2022-07-11] LABS: Absolute Neutrophil Ct (ANC) 4.11 x10^3/uL (1.4-6.9); Basophil (Absolute #) 0.01 x10^3/uL (0-0.4); Eosinophil % 2.5 % (0.00-5.0); Eosinophil (Absolute #) 0.14 x10^3/uL (0-0.5); Hemoglobin 11.8 g/dL (12.5-18.0); Lymphocyte (Absolute #) 0.88 x10^3/uL (1.0-4.6); Lymphocytes % 15.8 % (24.0-44.0); Mean Corpuscular Hemoglobin 31.5 pg (26-32); Mean Corpuscular Hgb Concent. 32.8 g/dL (32-36); Mean Platelet Volume 9.8 fL (7.5-11.0); Monocyte (Absolute #) 0.41 x10^3/uL (0.0-1.3); Monocytes % 7.4 % (0.0-12.0); Neutrophil % 73.7 % (36.0-66.0); Platelet Count 166 x10^3/uL (150-450); Red Blood Count 3.75 x10^6/uL (4.1-5.6); Red Cell Distribution Width 13.1 % (11.5-14.0); White Blood Count 5.6 x10^3/uL (4.0-10.5)
[2022-07-11] MEDS ORDERED: Lopressor 25MG Tab ONE (00:02)
[2022-07-11 00:15] LABS: ALBUMIN 4.5 g/dL (3.5-5.0); ALKALINE PHOSPHATASE 167 U/L (38-126); ANION GAP 11.1 MEQ/L (5-15); BLOOD UREA NITROGEN 14 mg/dL (9-20); CHLORIDE 102 mmol/L (98-107); Calcium 8.6 mg/dL (8.4-10.2); Carbon Dioxide 27 mmol/L (22-30); Creatinine 1 0.89 mg/dL (0.66-1.25); EST GLOMERULAR FILTRATION RATE > 60.0 ML/MIN; Glucose 154 mg/dL (74-106); Potassium 3.9 mmol/L (3.5-5.1); SGOT/AST 42 U/L (17-59); SGPT/ALT 21 U/L (0-50); SODIUM 136 mmol/L (137-145); Total Protein 7.7 g/dL (6.3-8.2)
[2022-07-11] MEDS ORDERED: Zofran 4 MG/2 ML VIAL IV PRN (00:24)
[2022-07-11] MEDS ORDERED: TYLENOL 325 MG PO PRN (00:24)
[2022-07-11] MEDS ORDERED: Sodium Chloride 0.9% 1000 ML 1,000 ML IV SCH (00:24)
[2022-07-11 00:47] LABS: INFLUENZA A NEGATIVE (NEGATIVE); INFLUENZA B NEGATIVE (NEGATIVE); RESPIRATORY SYNCTIAL VIRUS NEGATIVE (Negative); SARS-CoV-2 Xpert Express NEGATIVE (NEGATIVE)
[2022-07-11] MEDS ORDERED: [UNRECOGNIZED DRUG - OTHER] IJ SCH (08:30)
[2022-07-11] MEDS ORDERED: SODIUM CHLORIDE IJ SCH (08:30)
[2022-07-11] MEDS ORDERED: FENTANYL CITRATE IJ SCH (08:30)
[2022-07-11] MEDS ORDERED: PATIENT OWN MEDICATION IJ PRN (08:33)
--- NOTE | 2022-07-11 08:46 | XRAY ---
Indication: Altered mental status, weakness, and speech disturbance. Stroke. Multiple contiguous axial images obtained through the head without contrast. Comparison: None Age-appropriate global atrophy. No acute intracranial hemorrhage, abnormal extra-axial fluid collection, or mass effect. Fourth ventricle is midline without hydrocephalus. Bony calvarium intact. Visualized paranasal sinuses and mastoid air cells are clear. Impression: Atrophy within normal limits for patient's age. Remaining CT head without contrast exam is negative. Comment: Preliminary interpretation made by [facility]. No critical discrepancy.
--- NOTE | 2022-07-11 08:50 | XRAY ---
Indication: Altered mental status, weakness, and speech disturbance. Stroke. Conventional contrast enhanced CTA neck performed using 100 cc Isovue 370 contrast. Two-dimensional sagittal and coronal reformatted images obtained. Additional 3-dimensional reformatted images obtained using a separate workstation. Comparison: None Visualized aortic arch demonstrates anatomic variant for bovine arch. Very minimal arteriosclerotic calcifications of the aortic arch and origin left subclavian artery. Left/right common carotid, carotid bulb, internal carotid, and external carotid arteries are normal in CTA appearance. Vertebral arteries are normal in course and caliber with the left slightly larger in caliber. No critical stenosis, position, or AV malformation. Visualized soft tissues demonstrates a few centimeter/subcentimeter cervical and submandibular lymph nodes, none pathologically enlarged. Parotid and 70 bladder glands are bilaterally symmetric. Thyroid gland homogeneous in enhancement. Supra and infraglottic airway are widely patent. Osseous structures intact with osteopenia and multilevel cervical degenerative changes greatest at C6-C7. Lung apices are clear with incidental chunky mediastinal calcified nodes. Impression: 1. Normal CTA neck with contrast exam. 2. Incidental osteopenia, multilevel cervical degenerative spondylosis, and old granulomatous disease. Comment: Preliminary interpretation made by [facility]. No critical discrepancy.
--- NOTE | 2022-07-11 08:54 | XRAY ---
Indication: Altered mental status, weakness, and speech disturbance. Stroke. Conventional contrast enhanced CTA head performed using 100 cc Isovue 370 contrast. Two-dimensional sagittal and coronal reformatted images obtained. Additional 3-dimensional reformatted images obtained using a separate workstation. Comparison: None Distal internal carotid arteries are normal in course and caliber with very minimal calcifications involving both parasellar segments. No critical stenosis, dissection, or AV malformation. Normal carotid terminus with normal branching A1 and M1 segments bilaterally. More distal left/right anterior cerebral, left/right middle cerebral, anterior communicating, and posterior communicating arteries are normal in CTA appearance. Posterior circulation demonstrates normal CT appearance to the basilar, left/right posterior cerebral, left/right superior cerebellar, and left/right anterior inferior cerebellar arteries. Venous drainage/sinuses are unremarkable. No abnormal enhancing intra or extra-axial mass. Impression: Very minimal arteriosclerotic calcifications parasellar segments of both internal carotid arteries without critical stenosis/objection. Remaining CTA head with contrast exam is normal. Comment: Preliminary interpretation made by [facility]. No critical discrepancy.
[2022-07-11] MEDS: LIORESAL 10 MG PO SCH ×2 (09:06→13:41)
[2022-07-11] MEDS: NEURONTIN PO SCH ×2 (09:06→13:41)
--- NOTE | 2022-07-11 09:14 | PCM.HP ---
History of Present Illness - Chief Complaint Chief Complaint: TIA History of Present Illness: is a 72 year old male. Medications & Allergies Home Medications: Home Medication List Gabapentin [Neurontin] 600 mg PO TID 08/27/14 [History Confirmed 07/10/22] Baclofen 20 mg PO TID 12/31/15 [History Confirmed 07/10/22] Paroxetine HCl 20 mg [Paxil 20 MG] 10 mg PO DAILY 12/13/17 [History Confirmed 07/10/22] Fentanyl Citrate-0.9 % NaCl/Pf [Fentanyl 1,000 Mcg/100 ml-Ns] 1 mcg UD 10/25/20 [History Confirmed 07/10/22] Apixaban [Eliquis 5 mg Tablet] 5 mg PO BID 07/11/22 [History Confirmed 07/11/22] Metoprolol Tartrate 25 mg [Lopressor 25MG Tab] 25 mg PO DAILY 07/11/22 [History Confirmed 07/11/22] Allergies/Adverse Reactions: Allergies Allergy/AdvReac Type Severity Reaction Status Date / Time No Known Drug Allergies Allergy Verified 07/10/22 22:02 - Past Medical History Past Medical History: Yes Neurological History: Other ENT History: No Pertinent History Cardiac History: Arrhythmia Respiratory History: No Pertinent History Endocrine Medical History: No Pertinent History Musculoskelatal History: Rheumatoid Arthritis GI Medical History: Ulcer, Other History: No Pertinent History Pyscho-Social History: Depression Male Reproductive Disorders: Prostate Problems Comment: pt has arthritis in right knee and bilateral shoulders, pt has difficulty swallowing.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 a-fib, sleep apnea, anemia - Past Surgical History Past Surgical History: Yes Neuro Surgical History: No Pertinent History Cardiac History: No Pertinent History Respiratory Surgery: No Pertinent History GI Surgical History: Appendectomy Genitourinary Surgical Hx: No Pertinent History Musculskeletal Surgical Hx: Other Male Surgical History: No Pertinent History Other Surgical History: states back t-10,11,12 laminectomy r/t thoracic stenosis. Colonoscopy , left knee replacement, EGD with dilatation 2015 - Social History Smoking Status: Never smoker Exposure to second hand smoke: No Alcohol: None Drug Use: none - Physical Exam Vital Signs: Vital Signs - 24 hr Temp Pulse Resp BP Pulse Ox 07/11/22 07:44 97.9 F 66 16 160/81 95 07/11/22 05:03 96.6 F 70 17 137/73 94 L 07/11/22 03:25 96.8 F 67 16 149/75 93 L 07/11/22 03:04 96.8 F 67 16 149/75 93 L 07/11/22 01:19 98.8 F 93 H 18 168/115 95 07/11/22 00:05 93 H 18 168/115 95 07/10/22 23:46 65 18 109/72 96 07/10/22 21:54 98.8 F 90 20 170/84 95 Results - Labs Lab/Micro Results: Lab Results-Last 24 Hours 07/10/22 07/10/22 07/10/22 Range/Units 23:50 23:50 23:55 WBC 5.6 (4.0-10.5) x10^3/uL RBC 3.75 L (4.1-5.6) x10^6/uL Hgb 11.8 L (12.5-18.0) g/dL Hct 36.0 L (42-50) % MCV 96.0 (78-100) fL MCH 31.5 (26-32) pg MCHC 32.8 (32-36) g/dL RDW 13.1 (11.5-14.0) % Plt Count 166 (150-450) x10^3/uL MPV 9.8 (7.5-11.0) fL Gran % 73.7 H (36.0-66.0) % Immature Gran % (Auto) 0.4 (0.00-0.4) % Nucleat RBC Rel Count 0.0 (0.00-0.1) % Eos # (Auto) 0.14 (0-0.5) x10^3/uL Immature Gran # (Auto) 0.02 (0.00-0.03) x10^3u/L Absolute Lymphs (auto) 0.88 L (1.0-4.6) x10^3/uL Absolute Monos (auto) 0.41 (0.0-1.3) x10^3/uL Absolute Nucleated RBC 0.00 (0.00-0.01) x10^3u/L Lymphocytes % 15.8 L (24.0-44.0) % Monocytes % 7.4 (0.0-12.0) % Eosinophils % 2.5 (0.00-5.0) % Basophils % 0.2 (0.0-0.4) % Absolute Granulocytes 4.11 (1.4-6.9) x10^3/uL Basophils # 0.01 (0-0.4) x10^3/uL Sodium 136 L (137-145) mmol/L Potassium 3.9 (3.5-5.1) mmol/L Chloride 102 (98-107) mmol/L Carbon Dioxide 27 (22-30) mmol/L Anion Gap 11.1 (5-15) MEQ/L BUN 14 (9-20) mg/dL Creatinine 0.89 (0.66-1.25) mg/dL Estimated GFR > 60.0 ML/MIN Glucose 154 H (74-106) mg/dL Calcium 8.6 (8.4-10.2) mg/dL Total Bilirubin 0.90 (0.2-1.3) mg/dL AST 42 (17-59) U/L ALT 21 (0-50) U/L Alkaline Phosphatase 167 H (38-126) U/L Serum Total Protein 7.7 (6.3-8.2) g/dL Albumin 4.5 (3.5-5.0) g/dL Influenza Type A Ag NEGATIVE (NEGATIVE) Influenza Type B Ag NEGATIVE (NEGATIVE) RSV (PCR) NEGATIVE (Negative) SARS-CoV-2 (PCR) NEGATIVE (NEGATIVE) - Radiology Impressions Radiology Exams & Impressions: Radiology Procedures Category Date Time Status CAROTID BILATERAL [US] Stat Exams 07/11/22 09:[address] ANGIOGRAPHY NECK [CT] Stat Exams 07/11/22 03:01 Completed CTA HEAD W AND/OR WO CONTRAST [CT] Urgent Exams 07/11/22 03:01 Completed ECHO W/2D AND DOPPLER [US] Stat Exams 07/11/22 09:00 Ordered HEAD WITHOUT CONTRAST [CT] Stat Exams 07/10/22 22:00 Completed - Other Procedures and Tests Respiratory Therapy 07/11/22 00:24 EKG REPEAT IN AM
[2022-07-11] MEDS ORDERED: FLUZONE HIGH-DOSE QUAD 2022-23 IM ONE (10:00)
[2022-07-11] MEDS ORDERED: Paxil 20 MG PO SCH (10:00)
[2022-07-11] MEDS ORDERED: Lopressor 25MG Tab PO SCH (10:00)
[2022-07-11] MEDS ORDERED: NON-FORMULARY ITEM (Apixaban*** [Eliquis 5 Mg Tablet***] 5 MG Tablet) PO SCH (10:00)
[2022-07-11] MEDS ORDERED: NON-FORMULARY ITEM (Baclofen [Baclofen] 20 MG Tablet) PO SCH (10:00)
[2022-07-11] MEDS ORDERED: ELIQUIS 2.5 MG TABLET PO SCH ×3 (10:00)
[2022-07-11 11:39] VITALS: BP 157/77; PULSE 63; O2SAT 96
--- NOTE | 2022-07-11 11:52 | XRAY ---
Indication: TIA. Normal CTA neck with contrast exam earlier in the day. Two-dimensional sonogram and color Doppler imaging of the carotid arteries of the neck performed. Comparison: None Examination of the right carotid circulation demonstrates widely patent common carotid, carotid bulb, internal carotid, and external carotid arteries. PSV of the CCA is 75 cm/s. PSV of the ICA is 66 cm/s. ICA/CCA ratio is 0.9. Normal antegrade vertebral artery flow. Examination of the left carotid circulation demonstrates widely patent common carotid, carotid bulb, internal carotid, and external carotid arteries. PSV of the CCA is 119 cm/s. PSV of the ICA is 63 cm/s. ICA/CCA ratio is 0.5. Normal antegrade vertebral artery flow. Impression: Widely patent carotid arteries of the neck consistent with normal CTA exam of the same day.
== END 2022-07-11 14:05 | disposition home or self-care (01) ==
LOC: ED 21:45 → MED SURG 07-11 00:18
PROVIDERS: ADMIT Family Medicine; ATTEND Family Medicine
DX: G45.9 Transient cerebral ischemic attack, unspecified (principal); I48.91 Unspecified atrial fibrillation; M54.9 Dorsalgia, unspecified; Z79.01 Long term (current) use of anticoagulants; Z79.899 Other long term (current) drug therapy; Z20.828 Contact with and (suspected) exposure to other viral communicable diseases
CPT/HCPCS: 0241U; 36415; 70450; 70496; 70498; 80053; 85025; 87040; 90662; 93005; 93041; 93306; 93880; 94760; 99285; 99291; G0008; G0378; Q3014; A9270-GY